=== PATIENT | female | born 1935 | race Caucasian/White ===

== ENCOUNTER 2017-10-06 14:05 | Inpatient (IN) | payer MEDICARE, MEDICAID ==
[~2017-10-06] VITALS: Ht 154.9 cm; Wt 56.7 kg
[~2017-10-06 14:05] MED LIST: ACET-2007 PO; ACET-2031 PO; AMOX-559 PO; ASPI-816 CHEW; ASPI81TA86 PO; ATOR20TA65 PO; AZIT-1 PO; BACDS PO; BENZ200C15 PO; CALC600T63 PO; CEF300 PO; CEPH-13 PO; CHOL10005 PO; CHOL378P6 PO; CIPDEXPT RIGHT EAR; CIPR-344 PO; CLO30T TOP; CLON1 GT; CLOP75TA PO; CLOP75TA43 PO; CLOT15CR63 TP; Calcium Carbonate/Vitamin D3 PO; DESO15CR TP; DIPH-1 PO; DOCU-202 PO; DOXY-179 PO; FLU150 PO; GLIP2.5T PO; GLIP5POW MC; HYDR-3074 PO; HYDR-3629 PO; HYDR-385 PO; HYDR12.558 PO; IBU800 PO; IBUP200C71 PO; LOR5/325 PO; LOSA100T67 PO; LOSA50TA68 PO; LOSA50TA73 PO; METO25TA93 PO; METXR500 PO; MIRT-22 PO; MIRT7.5T2 PO; NAPR-1043 PO; NEOM10DR44 RIGHT EAR; OMEP-137 PO; OMEP-153 PO; OXYC-856 PO; PHENA200 PO; PRAZ1CAP26 PO; PRED20TA6 PO; PRO25 PO; PROP10TA58 PO; PROP40TA45 PO; PSYL0.5234 PO; QUET100T PO; QUET25TA PO; QUET50TA21 PO; SER50 PO; SERT-179 PO; SERT-181 PO; TRAM-420 PO; TRAM100T22 PO; TRAZ-133 PO; Walker with seat; ZOLP-350 PO; ZOLP-358 PO; ZOLP-360 PO; [UNRECOGNIZED DRUG - CODE] PO; [UNRECOGNIZED DRUG - CODE] VG; [UNRECOGNIZED DRUG - SUPPLY]; ambien; glipizide; metoprolol; vicodin
--- NOTE | 2017-10-06 14:11 | ER Report ---
History and Physical Time Seen By : 14:10 HPI/ROS CHIEF COMPLAINT: Vomiting HISTORY OF PRESENT ILLNESS: This is an 82-year-old female who presents to the emergency department with her daughter for nausea and vomiting. The last week she's had an increase in nausea and vomiting and now she is producing green vomit. She did have an appointment today with her primary care provider but was sent to the emergency department for further evaluation. The daughter states she is concerned that her mother has influenza as well. She states she's had aches and chills for the last 2 days she's felt febrile but has not taken her temperature. Patient does have chronic diarrhea with no recent changes, she also has had decreased urinary output over the last several days. Patient denies shortness of breath, chest pain, headaches. REVIEW OF SYSTEMS: Constitutional: As above. Eyes: No discharge. ENT: No sore throat. Cardiovascular: No chest pain, no palpitations. Respiratory: No cough, no shortness of breath. Gastrointestinal: As above. Genitourinary: As above. Musculoskeletal: No back pain. Skin: No rashes. Neurological: No headache. Allergies: Coded Allergies: azithromycin (Verified Allergy, Intermediate, 10/06/17) per patient's daughter JUD Inhibitors (Unverified Allergy, Unknown, 10/06/17) Cough Home Meds Active Scripts Tramadol Hcl (TRAMADOL HCL) 50 Mg Tablet, 1 TAB PO TID Y for PAIN, #90 TAB 2 Refills Prov:JORI MARCUS APRN-C 10/01/17 Benzonatate (BENZONATATE) 200 Mg Capsule, 1 CAP PO TID Y for COUGH, #15 CAPSULE 0 Refills Prov:JORI MARCUS APRN-C 08/17/17 Prazosin Hcl (PRAZOSIN HCL) 1 Mg Capsule, 1 MG PO QHS, #90 CAPSULE 1 Refill Prov:JORI MARCUS APRN-C 08/17/17 Propranolol Hcl (PROPRANOLOL HCL) 40 Mg Tablet, 1 TAB PO BID, #60 TAB 5 Refills For blood pressure and to prevent headaches Prov:JORI MARCUS APRN-C 07/03/17 Clopidogrel Bisulfate (CLOPIDOGREL) 75 Mg Tablet, 1 TAB PO QDAY, #30 TAB 5 Refills To prevent blood clots and stroke Prov:JORI MARCUS APRN FLY WORKER-C 07/03/17 Sertraline Hcl (SERTRALINE HCL) 100 Mg Tablet, 1 TAB PO QAM, #90 TAB 1 Refill For depression Prov:JORI MARCUS APRNP-C 07/03/17 Losartan Potassium (LOSARTAN POTASSIUM) 100 Mg Tablet, 1 TAB PO DAILY, #90 TAB 1 Refill For blood pressure Prov:JORI MARCUS APRNP-C 07/03/17 Psyllium Husk (PSYLLIUM FIBER) 0.52 Gm Capsule, 2 CAP PO DAILY, #60 CAPSULE 5 Refills Prov:JORI MARCUS APRNP-C 01/16/17 Aspirin (Children's Aspirin) 81 Mg Tab.chew, 81 MG CHEW QDAY, #30 TAB.CHEW Prov:ALBINO BLUE MD 08/22/15 Discontinued Scripts Amoxicillin/Pot Clav 875-125 Mg Tab (AUGMENTIN 875-125 TABLET) 1 Each Tablet, 1 TAB PO Q12H, #20 TAB 0 Refills Prov:JORI MARCUS APRNP- 08/17/17 Past Medical/Surgical History H and has a past medical and surgical history of hypertension, left shoulder arthritis, wears glasses, type II diabetes, depression, place cystectomy, tonsillectomy, right total hip. Reviewed Nurses Notes: Yes Hx Smoking: No Smoking Status: Never Smoker Exposure to Second Hand Smoke?: No Hx Substance Use Disorder: No Hx Alcohol Use: No Constitutional Vital Sign - Last 24 Hours 10/06/17 10/06/17 10/06/17 10/06/17 14:09 14:09 14:30 14:54 Temp 97.6 Pulse 60 45 Resp 18 B/P (MAP) 143/64 149/66 (93) Pulse Ox 93 91 O2 Delivery Room Air O2 Flow Rate 2.0 10/06/17 10/06/17 10/06/17 15:00 15:30 16:00 Pulse 50 55 B/P (MAP) 109/44 (65) 106/47 (66) 124/48 (73) Pulse Ox 84 74 Intake and Output 10/06/17 10/06/17 10/07/17 15:00 23:00 07:00 Output Total 25 ml Balance -25 ml Physical Exam General Appearance: The patient is alert, has no immediate need for airway protection and no signs of toxicity. Eyes: Pupils equal and round no pallor or injection. ENT, Mouth: Mucous membranes are moist. Erythema to the posterior oropharynx, no exudates or edema. Respiratory: There are no retractions, lungs are clear to auscultation. Cardiovascular: Regular rate and rhythm, distant, no murmurs, clicks or rubs. Gastrointestinal: Abdomen is soft and non tender, no masses, bowel sounds normal. Neurological: Alert and oriented 4. Following all commands. Moving all extremities. No focal neuro deficits. Very hard of hearing. Skin: Warm and dry, no rashes. Musculoskeletal: Neck is supple non tender. Extremities are nontender, nonswollen and have full range of motion. DIFFERENTIAL DIAGNOSIS: After history and physical exam differential diagnosis was considered nausea and vomiting including but not limited to gastroenteritis , gastritis, appendicitis, and medication side effect, chronic diarrhea, UTI, influenza, viral syndrome. Medical Decision Making Data Points Result Diagram: 10/06/17 1426 10/06/17 1426 Laboratory Hematology Test 10/06/17 14:26 10/06/17 14:35 10/06/17 16:01 Red Blood Count 4.74 M/uL (4.17-5.56) Mean Corpuscular Volume 89.1 fL (80.0-96.0) Mean Corpuscular Hemoglobin 29.2 pg (26.0-33.0) Mean Corpuscular Hemoglobin Concent 32.8 g/dL (32.0-36.0) Red Cell Distribution Width 14.3 % (11.5-14.5) Mean Platelet Volume 8.8 fL (7.2-11.1) Neutrophils (%) (Auto) 63.2 % (39.4-72.5) Lymphocytes (%) (Auto) 25.4 % (17.6-49.6) Monocytes (%) (Auto) 8.0 % (4.1-12.4) Eosinophils (%) (Auto) 2.5 % (0.4-6.7) Basophils (%) (Auto) 0.9 % (0.3-1.4) Nucleated RBC Relative Count (auto) 0.1 /100WBC Neutrophils # (Auto) 5.8 K/uL (2.0-7.4) Lymphocytes # (Auto) 2.3 K/uL (1.3-3.6) Monocytes # (Auto) 0.7 K/uL (0.3-1.0) Eosinophils # (Auto) 0.2 K/uL (0.0-0.5) Basophils # (Auto) 0.1 K/uL (0.0-0.1) Nucleated RBC Absolute Count (auto) 0.01 K/uL Sodium Level 137 mmol/L (137-145) Potassium Level 4.7 mmol/L (3.5-5.0) Chloride Level 105 mmol/L (98-107) Carbon Dioxide Level 13 mmol/L (22-31) Blood Urea Nitrogen 53 mg/dl (7-18) Creatinine 2.30 mg/dl (0.52-1.04) Glomerular Filtration Rate Calc 20.3 Random Glucose 80 mg/dl (75-110) Calcium Level 9.4 mg/dl (8.4-10.2) Total Bilirubin 0.7 mg/dl (0.2-1.3) Aspartate Amino Transf (AST/SGOT) 32 U/L (0-35) Alanine Aminotransferase (ALT/SGPT) 33 U/L (0-56) Alkaline Phosphatase 95 U/L (0-126) Total Protein 8.0 gm/dl (6.3-8.2) Albumin 4.6 g/dl (3.5-5.0) Influenza Virus Type A (PCR) Negative (NEGATIVE) Influenza Virus Type B (PCR) Negative (NEGATIVE) Urine Color Yellow Urine Clarity Clear Urine pH 5.0 pH (4.8-9.5) Urine Specific [place] 1.014 Urine Protein Negative mg/dL (NEGATIVE) Urine Glucose (UA) Negative mg/dL (NEGATIVE) Urine Ketones 20 mg/dL (NEGATIVE) Urine Blood Negative (NEGATIVE) Urine Nitrite Negative (NEGATIVE) Urine Bilirubin Negative (NEGATIVE) Urine Urobilinogen Negative mg/dL (0.2-1.9) Urine Leukocyte Esterase Negative (NEGATIVE) Urine RBC <1 /HPF (0-2/HPF) Urine WBC 1 /HPF (0-5/HPF) Urine Squamous Epithelial Cells Many /LPF (NONE-FEW) Urine Bacteria Negative /HPF (NONE-FEW) Urine Hyaline Casts Moderate /LPF (NONE-FEW) Urine Mucus None /HPF (NONE-FEW) Chemistry Test 1/30/18 14:26 10/06/17 14:35 10/06/17 16:01 White Blood Count 9.2 k/uL (4.5-11.0) Red Blood Count 4.74 M/uL (4.17-5.56) Hemoglobin 13.8 g/dL (12.0-16.0) Hematocrit 42.2 % (34.0-47.0) Mean Corpuscular Volume 89.1 fL (80.0-96.0) Mean Corpuscular Hemoglobin 29.2 pg (26.0-33.0) Mean Corpuscular Hemoglobin Concent 32.8 g/dL (32.0-36.0) Red Cell Distribution Width 14.3 % (11.5-14.5) Platelet Count 242 K/uL (150-450) Mean Platelet Volume 8.8 fL (7.2-11.1) Neutrophils (%) (Auto) 63.2 % (39.4-72.5) Lymphocytes (%) (Auto) 25.4 % (17.6-49.6) Monocytes (%) (Auto) 8.0 % (4.1-12.4) Eosinophils (%) (Auto) 2.5 % (0.4-6.7) Basophils (%) (Auto) 0.9 % (0.3-1.4) Nucleated RBC Relative Count (auto) 0.1 /100WBC Neutrophils # (Auto) 5.8 K/uL (2.0-7.4) Lymphocytes # (Auto) 2.3 K/uL (1.3-3.6) Monocytes # (Auto) 0.7 K/uL (0.3-1.0) Eosinophils # (Auto) 0.2 K/uL (0.0-0.5) Basophils # (Auto) 0.1 K/uL (0.0-0.1) Nucleated RBC Absolute Count (auto) 0.01 K/uL Glomerular Filtration Rate Calc 20.3 Calcium Level 9.4 mg/dl (8.4-10.2) Total Bilirubin 0.7 mg/dl (0.2-1.3) Aspartate Amino Transf (AST/SGOT) 32 U/L (0-35) Alanine Aminotransferase (ALT/SGPT) 33 U/L (0-56) Alkaline Phosphatase 95 U/L (0-126) Total Protein 8.0 gm/dl (6.3-8.2) Albumin 4.6 g/dl (3.5-5.0) Influenza Virus Type A (PCR) Negative (NEGATIVE) Influenza Virus Type B (PCR) Negative (NEGATIVE) Urine Color Yellow Urine Clarity Clear Urine pH 5.0 pH (4.8-9.5) Urine Specific [place] 1.014 Urine Protein Negative mg/dL (NEGATIVE) Urine Glucose (UA) Negative mg/dL (NEGATIVE) Urine Ketones 20 mg/dL (NEGATIVE) Urine Blood Negative (NEGATIVE) Urine Nitrite Negative (NEGATIVE) Urine Bilirubin Negative (NEGATIVE) Urine Urobilinogen Negative mg/dL (0.2-1.9) Urine Leukocyte Esterase Negative (NEGATIVE) Urine RBC <1 /HPF (0-2/HPF) Urine WBC 1 /HPF (0-5/HPF) Urine Squamous Epithelial Cells Many /LPF (NONE-FEW) Urine Bacteria Negative /HPF (NONE-FEW) Urine Hyaline Casts Moderate /LPF (NONE-FEW) Urine Mucus None /HPF (NONE-FEW) Urinalysis Test 10/06/17 16:01 Urine Color Yellow Urine Clarity Clear Urine pH 5.0 pH (4.8-9.5) Urine Specific [place] 1.014 Urine Protein Negative mg/dL (NEGATIVE) Urine Glucose (UA) Negative mg/dL (NEGATIVE) Urine Ketones 20 mg/dL (NEGATIVE) Urine Blood Negative (NEGATIVE) Urine Nitrite Negative (NEGATIVE) Urine Bilirubin Negative (NEGATIVE) Urine Urobilinogen Negative mg/dL (0.2-1.9) Urine Leukocyte Esterase Negative (NEGATIVE) Urine RBC <1 /HPF (0-2/HPF) Urine WBC 1 /HPF (0-5/HPF) Urine Squamous Epithelial Cells Many /LPF (NONE-FEW) Urine Bacteria Negative /HPF (NONE-FEW) Urine Hyaline Casts Moderate /LPF (NONE-FEW) Urine Mucus None /HPF (NONE-FEW) ED Course/Re-evaluation Clinical Indication for ER IV: Hydration, IV Access ED Course The patient was admitted. A history of physical were obtained. Differential diagnoses were considered. An IV was started. A CBC, CMP were obtained. A 1 L normal saline bolus was given. 4 mg IV Zofran was given. CBC unremarkable. Chemistries showing CO2 13, BUN 53, creatinine 2.30 area did UA showing large ketones. Negative influenza. Stool studies ordered but not obtained in the emergency department. I did review these results with the patient and her daughter and thought that it would be advisable for her to stay in the hospital for her renal impairment. The daughter and the patient after much discussion agreed to stay in the hospital. I did review the case with Dr. Fulton as noted below and he accepted the patient into the hospitalist services and she will be admitted to the medical surgical floor. I did tell the patient that she will be admitted patient had no other questions or concerns at the time of admission. 10/06/2017 3:47:57 pm I did speak with Dr. Fulton regarding the patient's case and he is agreed to make the patient to the medical surgical unit for dehydration and elevated BUN and creatinine. Decision to Disposition Date: Oct 06, 2017 Decision to Disposition Time: 15:47 Depart Departure Latest Vital Signs Vital Signs Date Time Temp Pulse Resp B/P (MAP) Pulse Ox O2 Delivery O2 Flow Rate FiO2 10/06/17 16:00 55 124/48 (73) 74 10/06/17 14:09 97.6 18 Room Air 10/06/17 14:09 2.0 Impression: Primary Impression: Dehydration Additional Impressions: Elevated serum creatinine Elevated BUN Condition: Improved Disposition: Admitted from ER Referrals: JORI MARCUS APRN FLY WORKER-C (PCP) Problem Qualifiers SHERLY BURNS FLY WORKER-BC Oct 06, 2017 14:11
[2017-10-06] MEDS ORDERED: LR(*) 1000 ML BAG 1,000 ML IV ONE (14:23)
[2017-10-06] MEDS ORDERED: ONDANSETRON 4 MG/2 ML VIAL IVP ONE (14:25)
[2017-10-06 14:41] LABS: PLATELET COUNT, AUTOMATED 242 K/uL (150-450)
[2017-10-06] MEDS ORDERED: NS(*) 0.9% 1000 ML BAG 1,000 ML IV ONE (15:05)
[2017-10-06 16:55] VITALS: BP 97/32
[2017-10-06 18:37] VITALS: BP 129/90
[2017-10-06] MEDS ORDERED: ACETAMINOPHEN 325 MG TAB PO PRN (18:45)
[2017-10-06] MEDS ORDERED: ONDANSETRON 4 MG/2 ML VIAL IVP PRN (18:45)
[2017-10-06] MEDS: NS(*) 0.9% 1000 ML BAG 1,000 ML IV PRN ×2 (19:10→23:19)
--- NOTE | 2017-10-06 19:16 | History & Physical ---
History of Present Illness Chief Complaint N/V/Diarrhea/ weight loss>20lbs History of Present Illness Mrs. Wang is an 82-year-old female with PMH of HTN, Depression who presented to the emergency department with her daughter for nausea, vomiting and diarrhea. Since the last week she's been having an increase in nausea and vomiting and now she is producing green vomit. She did have an appointment today with her primary care provider but was sent to the emergency department for further evaluation. The daughter was concerned that her mother could have influenza as well. She mentioned that she also has been having body ache, fever and chills for the last 2 days. The patient also has been having chronic diarrhea with decreased urinary output over the last several days. Patient denies shortness of breath, chest pain, headaches. She also has lost >20lbs. I discussed the case with the ER-MD and admitted the patient for further evaluation and management. She is chronica;;y looked sick and clinically looked dehydrated. Her BUN/Cr 53/ 2.3 with GFR 20ml/min also high and HCO3 were 13 with Anion Gap of 19. History Home Meds Active Scripts Tramadol Hcl (TRAMADOL HCL) 50 Mg Tablet, 1 TAB PO TID Y for PAIN, #90 TAB 2 Refills Prov:JORI MARCUS APRNP-C 10/01/17 Benzonatate (BENZONATATE) 200 Mg Capsule, 1 CAP PO TID Y for COUGH, #15 CAPSULE 0 Refills Prov:JORI MARCUS APRNP-C 08/17/17 Prazosin Hcl (PRAZOSIN HCL) 1 Mg Capsule, 1 MG PO QHS, #90 CAPSULE 1 Refill Prov:JORI MARCUS APRNP-C 08/17/17 Propranolol Hcl (PROPRANOLOL HCL) 40 Mg Tablet, 1 TAB PO BID, #60 TAB 5 Refills For blood pressure and to prevent headaches Prov:JORI MARCUS APRNP-C 07/03/17 Clopidogrel Bisulfate (CLOPIDOGREL) 75 Mg Tablet, 1 TAB PO QDAY, #30 TAB 5 Refills To prevent blood clots and stroke Prov:JORI MARCUS APRNP-C 07/03/17 Sertraline Hcl (SERTRALINE HCL) 100 Mg Tablet, 1 TAB PO QAM, #90 TAB 1 Refill For depression Prov:JORI MARCUS DAWOOD CERNA-C 07/03/17 Losartan Potassium (LOSARTAN POTASSIUM) 100 Mg Tablet, 1 TAB PO DAILY, #90 TAB 1 Refill For blood pressure Prov:TRACEYDANNIJAJORIKENIA CERNA-C 07/03/17 Psyllium Husk (PSYLLIUM FIBER) 0.52 Gm Capsule, 2 CAP PO DAILY, #60 CAPSULE 5 Refills Prov:KRISTINEJoeJORI RAZO APRN-C 01/16/17 Aspirin (Children's Aspirin) 81 Mg Tab.chew, 81 MG CHEW QDAY, #30 TAB.CHEW Prov:ALBINO BLUE MD 08/22/15 Discontinued Scripts Amoxicillin/Pot Clav 875-125 Mg Tab (AUGMENTIN 875-125 TABLET) 1 Each Tablet, 1 TAB PO Q12H, #20 TAB 0 Refills Prov:JORI MARCUS APRN-[place] 08/17/17 Allergies: Coded Allergies: azithromycin (Verified Allergy, Intermediate, 10/06/17) per patient's daughter JUD Inhibitors (Unverified Allergy, Unknown, 10/06/17) Cough Patient History: Alcoholism in family BROTHER OR SISTER (4 Brothers) FH: diabetes mellitus FATHER, , Age:62 BROTHER OR SISTER (3 sisters) FH: lung disease BROTHER OR SISTER (3 sisters) TIAs BROTHER OR SISTER (4 Brothers) Hx Smoking: No Smoking Status: Never Smoker Exposure to Second Hand Smoke?: No Caffeine Intake: Coffee, Tea Caffeine/Cups Per Day: 3 Hx Alcohol Use: No When Quit Alcohol?: HASN'T HAD ANY ALCOHOL IN 15 YEARS Hx Substance Use Disorder: No Social Drug Use: Never Review of Systems Constitutional: Weight Loss, No Weight Gain, No Chills Neurological: Weakness, No Confusion, No Dizziness Eyes: No Vision Change ENT: No Sinus Congestion, No Sore Throat Cardiovascular: No Chest Pain, No Palpitations Respiratory: No Shortness of Breath, No Cough Gastrointestinal: Nausea, No Vomiting, Diarrhea, No Dysphagia, No Constipation , No Abdominal Pain Genitourinary: No Dysuria, No Hematuria Musculoskeletal: No Pain, No Sprain, No Strain Psychiatric: No Depression, No Anxiety Exam Vital Signs Vital Signs Date Time Temp Pulse Resp B/P (MAP) Pulse Ox O2 Delivery O2 Flow Rate FiO2 10/06/17 18:37 97.5 51 12 129/90 (103) 97 Nasal Cannula 2.0 General Appearance: Alert, Awake, No Acute Distress, Afebrile Neuro: No Gross deficits Eyes: PERRLA ENT: Other (dry oral mucosa) Cardiovascular: Normal Rhythm & Peripheral Pulses Respiratory: No Respiratory Distress GI: Abd Soft and Non-Tender Extremities: Soft and Non Tender Integumentary: Scaly / Dry Skin Psych: Alert & Oriented X3, Other (down) Medical Decision Making Data Points Result Diagram: 10/06/17 1426 10/06/17 1426 Pre-Admit Course Medical Record Review: Yes Assessment and Plan Problems: (1) Acute kidney injury (nontraumatic) Status: Acute Assessment & Plan: She has been having N/V/D and lost > 20 lbs weight and became severe dehydrated and her kidney function deteriorated to GFR 20ml/min I will start her on IVF NS 250ml/h I will repeat BMP and CBC in am I will get Renal US in am I will get Urine Protein, creatinine and Na (2) Metabolic acidosis Status: Acute Assessment & Plan: She has high AG metabolic acidosis due to starvation ketosis and uremia. I will start IVF NS 250ml/min I will repeat BMP in am (3) Dehydration Status: Acute Assessment & Plan: I will start IVF NS at 250ml/h for 2L and then change to 150ml/h Central Venous Access Medical Necessity for Access: Hemodynamic Monitoring, IV Access, Medication Administration Time Spent on Plan of Care: < 30 min Copies to: JORI MARCUS APRN HEEL COVERER MACHINE OPERATOR-C Venous Thromboembolism VTE Risk Physician Assess for VTE Risk: Yes Patient's VTE Risk: Low VTE Diagnostic Test 2 Days Prior to Admit: No Antithrombotics Is Pt On Any Antithrombotics?: No Exam Sepsis Risk: No Definite Risk ELROY TANNER MD Oct 06, 2017 19:16
[2017-10-06] MEDS: traMADol 50 MG TAB PO PRN (21:44)
[2017-10-06 23:04] VITALS: BP 105/68
[2017-10-07] MEDS: NS(*) 0.9% 1000 ML BAG 1,000 ML IV PRN ×2 (03:10→10:54)
[2017-10-07 03:26] VITALS: BP 108/35
[2017-10-07 05:51] LABS: PLATELET COUNT, AUTOMATED 174 K/uL (150-450)
[2017-10-07 07:23] VITALS: BP 94/38
[2017-10-07] MEDS: SERTRALINE HCL 50 MG TAB PO SCH (08:22)
[2017-10-07] MEDS: PANTOPRAZOLE SOD 40 MG TABEC PO SCH (08:22)
[2017-10-07] MEDS: CLOPIDOGREL BISULFATE 75MG TAB PO SCH (08:22)
[2017-10-07 08:35] VITALS: Ht 154.9 cm; Wt 56.7 kg
[2017-10-07 10:52] VITALS: BP 137/55
[2017-10-07 14:08] VITALS: BP 132/52
--- NOTE | 2017-10-07 14:12 | Hospitalist Progress Note ---
Subjective Progress Notes Subjective She reports feeling improved and would like to eat. Physical Exam Vital Signs Date Time Temp Pulse Resp B/P (MAP) Pulse Ox O2 Delivery O2 Flow Rate FiO2 10/07/17 10:52 97.7 54 14 137/55 (82) 92 Nasal Cannula 1.0 Intake and Output 10/08/17 07:01 Intake Total 670 ml Balance 670 ml Intake Oral 0 ml IV Total 670 ml # Voids 2 General Appearance: Alert, Awake, Other (hard of hearing) Cardiovascular: Regular Rate and Rhythm Respiratory: Clear to Auscultation GI: Soft and Non-Tender Extremities: Warm, Perfused Result Diagram: 10/07/17 0540 10/07/17 0521 Assessment and Plan Problems: (1) Acute kidney injury (nontraumatic) Status: Acute Assessment & Plan: Appears to be due to dehydration secondary to poor intake. She has improved with IV fluids. Creatinine is 1.7 today (2.3 at admission). Will continue IV fluids. Will resume oral intake. Watch closely. (2) Metabolic acidosis Status: Acute Assessment & Plan: She had a high AG metabolic acidosis most likely due to starvation ketosis. Continue IV fluids. Resume oral intake. Watch labs. (3) Dehydration Status: Acute Assessment & Plan: Will continue IV fluids, but will decrease to 80ml/hr. Watch oral intake. Central Venous Access Medical Necessity for Access: Hemodynamic Monitoring, IV Access, Medication Administration Exam Sepsis Risk: No Definite Risk RUSS BLUE MD Oct 07, 2017 14:12
[2017-10-07 18:40] VITALS: BP 136/63
[2017-10-07 23:20] VITALS: BP 123/48
[2017-10-08] VITALS (7 sets, daily range): BP systolic 104–174; BP diastolic 40–78
[2017-10-08] MEDS: traMADol 50 MG TAB PO PRN ×2 (00:03→17:04)
[2017-10-08 06:02] LABS: PLATELET COUNT, AUTOMATED 158 K/uL (150-450)
[2017-10-08] MEDS: CLOPIDOGREL BISULFATE 75MG TAB PO SCH (08:19)
[2017-10-08] MEDS: PANTOPRAZOLE SOD 40 MG TABEC PO SCH (08:20)
[2017-10-08] MEDS: SERTRALINE HCL 50 MG TAB PO SCH (08:20)
[2017-10-08] MEDS: NS(*) 0.9% 1000 ML BAG 1,000 ML IV PRN (09:41)
[2017-10-08] MEDS ORDERED: NS(*) 0.9% 1000 ML BAG 1,000 ML IV PRN (09:56)
--- NOTE | 2017-10-08 13:26 | Hospitalist Progress Note ---
Subjective Progress Notes Subjective Mrs. Wang is an 82-year-old female with PMH of HTN, Depression who presented to the emergency department with her daughter for nausea, vomiting and diarrhea. Since the last week she's been having an increase in nausea and vomiting and now she is producing green vomit. She did have an appointment today with her primary care provider but was sent to the emergency department for further evaluation. The daughter was concerned that her mother could have influenza as well. She mentioned that she also has been having body ache, fever and chills for the last 2 days. The patient also has been having chronic diarrhea with decreased urinary output over the last several days. Patient denies shortness of breath, chest pain, headaches. She also has lost >20lbs. I discussed the case with the ER-MD and admitted the patient for further evaluation and management. She is chronica;;y looked sick and clinically looked dehydrated. Her BUN/Cr 53/ 2.3 with GFR 20ml/min also high and HCO3 were 13 with Anion Gap of 19. 2/1: She is feeling much better but she is slightly confused. Her kidney function has sig. improved with cr 1.3 from 2.3. She is afebrile, hemodynamically and medically stable. Patient Complains of: Neurological: Confusion, No: Weakness, Dizziness Cardiovascular: No: Chest Pain, Palpitations Respiratory: No: Cough, Congestion, Shortness of Breath Gastrointestinal: No Nausea, No Vomiting Genitourinary: No Dysuria, No Hematuria Musculoskeletal: No: Pain, Sprain, Strain, Impaired Mobility Physical Exam Vital Signs Date Time Temp Pulse Resp B/P (MAP) Pulse Ox O2 Delivery O2 Flow Rate FiO2 10/08/17 12:00 93 10/08/17 11:09 98.6 56 12 173/65 (101) Room Air 10/08/17 02:45 1.0 Intake and Output 10/09/17 07:00 Intake Total 118 ml Output Total 100 ml Balance 18 ml Intake Oral 0 ml IV Total 118 ml Output Urine Total 100 ml # Voids 2 General Appearance: Alert, Awake, No Acute Distress, Afebrile Neuro: No Gross deficits Eyes: PERRLA ENT: Normal Cardiovascular: Normal Rhythm & Peripheral Pulses Respiratory: No Respiratory Distress GI: Soft and Non-Tender Extremities: Soft and Non Tender Integumentary: Skin Intact without Lesion / Mass Psych: Appropriate Mood & Affect (not fully oriented and hard of hearing) Result Diagram: 10/08/17 0534 10/08/17 0534 Assessment and Plan Problems: (1) Acute kidney injury (nontraumatic) Status: Acute Assessment & Plan: Appears to be due to dehydration secondary to poor intake. She has improved with IV fluids. Creatinine is 1.7 today (2.3 at admission). Will continue IV fluids. Will resume oral intake. Watch closely. 10/08: I will change her IVF to NS at 50ml/h and repeat BMP in am. Anticipated d/c in am (2) Metabolic acidosis Status: Acute Assessment & Plan: She had a high AG metabolic acidosis most likely due to starvation ketosis. Continue IV fluids. Resume oral intake. Watch labs. (3) Dehydration Status: Acute Assessment & Plan: Will continue IV fluids, but will decrease to 80ml/hr. Watch oral intake. 10/08: She is getting better with IVF. Central Venous Access Medical Necessity for Access: Hemodynamic Monitoring, IV Access, Medication Administration Exam Sepsis Risk: No Definite Risk ELROY TANNER MD Oct 08, 2017 13:26
[2017-10-08] MEDS ORDERED: LOSARTAN POTASSIUM 50 MG TAB PO SCH (15:45)
[2017-10-08] MEDS: ATENOLOL 25 MG TAB PO SCH (16:07)
[2017-10-09 03:36] VITALS: BP 178/74
[2017-10-09 08:09] VITALS: BP 176/70
[2017-10-09] MEDS: CLOPIDOGREL BISULFATE 75MG TAB PO SCH (08:16)
[2017-10-09] MEDS: PANTOPRAZOLE SOD 40 MG TABEC PO SCH (08:16)
[2017-10-09] MEDS: SERTRALINE HCL 50 MG TAB PO SCH (08:16)
[2017-10-09] MEDS: ATENOLOL 25 MG TAB PO SCH (08:17)
[2017-10-09] MEDS ORDERED: LOSARTAN POTASSIUM 50 MG TAB PO SCH (09:00)
[2017-10-09] MEDS ORDERED: ATEN-65 PO (09:32)
--- NOTE | 2017-10-09 11:08 | Medical Nutrition Therapy ---
Nutrition Anthropometrics Height (Inches): 61.00 Height (Calculated Centimeters: 154.484087 Weight (Pounds): 125 Weight (Calculated Kilograms): 56.784 BMI Calculated: 23.62 Gideon Nutrition Score: Adequate Gideon Nutrition Risk Score: 20 Dietary Referral Nutrition Risk Factors: Unplanned Loss >10lbs Nutrition Risk Comment: Physical Findings Physical Appearance: WNL 23.7 Skin Appearance Skin Appearance: Edema Edema Location Modifier: Edema Location: Type of Edema: Degree of Edema: Gastrointestinal Symptoms GI Symtoms: Diarrhea, Change in Bowel Pattern Tube Present: Bowel Sounds: Recent Bowel Pattern: Stool Characteristics: Nutritional Diagnosis Nutritional Risk Acuity 1: Acute/ES Renal Nutritional Risk Acuity 2: V/D > 3 Days Nutritional Risk Acuity 3: Nausea Past Medical History: chronic diarrhea, HTN, T2DM, depression Nutritional Acuity: 1-High Nutrition Diagnosis: Involuntary Wt. Loss Nutrition Etiology: Inadeq. Food/Chris Intake Nutrition Problem/Etiology/Sym: Involuntary wt. loss r/t inadequate food/chris intake, N, V, and chronic diarrhea AEB reported 20 lb. wt loss Energy Requirement: 1300 ([place] [facility] Jeor) Protein Requirement: 57 (1 g/kg) Fluid Requirement: 1680 (30 ml/kg) Diet Type: Diet as Tolerated LAMIN/REG Nutrition Intervention: Cont diet as ordered, Encourage intake Diet Comment To RSA: PLEASE OFFER SUGAR FREE NUTRITION SUPPLEMENT IF INTAKE < 50% Nutrition Monitoring & Eval RD Patient Assessment Time: [address] Assessment Type: RD Assessment Patient Nutrition Acuity: 1-High Follow Up Date: Oct 10, 2017 Nutritional Comment: 10/07 Pt admitted for acute kidney injury (non-traumatic) due to N/V/D and 20 lb. wt loss. Pt also dehydrated and has metabolic acidosis due to starvation ketosis and uremia. Pt reports N/V x 1 week. Pt has chronic diarrhea with no recent changes. Also reports 20 lb. wt loss. Pt current wt 125#. Wt from previous visit on 10/14/15 was 160# stated. Will discuss with pt and family regarding time frame of wt loss. Pt on LAMIN with no intake documentation available. Notable labs include low Hgb, Na 136, BUN 40, Cr 1.7, Glu 73, and Ca 8.2. Will monitor intake and offer nutr supplement if necessary. Continue to monitor labs, N/V, etc. 2/1 Spoke to patient in room. Unable to understand pt at times and pt had some confusion. Family was not present to answer questions. Pt could not explain time frame of wt loss. Will provide sugar free nutrition supplement if intake is < 50%. Pt on LAMIN averaging 70% intake of reg to large portions. GI symptoms resolved and WNL per nursing doc. Pt utilitizes [employer] meals and home health care according to social services manager note. Notable labs include BUN 26, Cr 1.3, total pro 5.5, and alb 2.8. Will continue to encourage intake and monitor. 2/2 Pt continues on LAMIN averaging intakes 73% of reg portions. Notable labs include Na 136, BUN 20, and Cr 1.2. No N/V/D recorded by nursing staff. Pt is feeling better but slightly confused per MD note. May discharge today or tomorrow. Will continue to offer sugar free supplement if intake < 50% and continue to monitor. DALILA PIZARRO Oct 08, 2017 09:53
--- NOTE | 2017-10-09 11:17 | Hospitalist Depart ---
Discharge Summary Reason for Hosp/Final Diag: (1) Acute kidney injury (nontraumatic) Status: Acute Hospital Course & Plan: Mrs. Wang is an 82-year-old female with PMH of HTN, Depression who presented to the emergency department with her daughter for nausea, vomiting and diarrhea. Since the last week she's been having an increase in nausea and vomiting and now she is producing green vomit. She did have an appointment today with her primary care provider but was sent to the emergency department for further evaluation. The daughter was concerned that her mother could have influenza as well. She mentioned that she also has been having body ache, fever and chills for the last 2 days. The patient also has been having chronic diarrhea with decreased urinary output over the last several days. Patient denies shortness of breath, chest pain, headaches. She also has lost >20lbs. I discussed the case with the ER-MD and admitted the patient for further evaluation and management. She is chronically looked sick and clinically looked dehydrated. Her BUN/Cr 53/ 2.3 with GFR 20ml/min also high and HCO3 were 13 with Anion Gap of 19. 10/08: She is feeling much better but she is slightly confused. Her kidney function has sig. improved with cr 1.3 from 2.3. She is afebrile, hemodynamically and medically stable. I will change her IVF to NS at 50ml/h and repeat BMP in am. Anticipated d/c in am 10/09: She is feeling better and without complaint. Her Cr is 1.2 and GFR 43ml/min. She is afebrile , hemodynamically and medically stable. I will stop her IVF and resume her home medications. She will f/u with her PCP (2) Metabolic acidosis Status: Resolved Hospital Course & Plan: She had a high AG metabolic acidosis most likely due to starvation ketosis. Continue IV fluids. Resume oral intake. Watch labs. 10/09: Her metabolic acidosis with AG has resolved (3) Dehydration Status: Resolved Hospital Course & Plan: Will continue IV fluids, but will decrease to 80ml/hr. Watch oral intake. 10/08: She is getting better with IVF. 2: Her dehydration has improved Departure Weight (Pounds): 125 Weight (Ounces): 3.0 Result Diagram: 10/08/17 0534 10/09/17 05 Condition: Improved Discharge: Home Health PT/OT Follow Up For: PT For Strengthening Home Health [employer] Follow Up For: ADL Assistance Time Spent: < 30 min Discharge Instructions Home Meds Active Scripts Atenolol (ATENOLOL) 25 Mg Tablet, 1 TAB PO QDAY for 30 Days, #30 TAB Prov:ELROY TANNER MD 10/09/17 Tramadol Hcl (TRAMADOL HCL) 50 Mg Tablet, 1 TAB PO TID Y for PAIN, #90 TAB 2 Refills Prov:JORI MARCUS APRN 10/01/17 Benzonatate (BENZONATATE) 200 Mg Capsule, 1 CAP PO TID Y for COUGH, #15 CAPSULE 0 Refills Prov:JORI MARCUS APRN 08/17/17 Prazosin Hcl (PRAZOSIN HCL) 1 Mg Capsule, 1 MG PO QHS, #90 CAPSULE 1 Refill Prov:JORI MARCUS APRN 08/17/17 Clopidogrel Bisulfate (CLOPIDOGREL) 75 Mg Tablet, 1 TAB PO QDAY, #30 TAB 5 Refills To prevent blood clots and stroke Prov:JORI MARCUS APRN 07/03/17 Sertraline Hcl (SERTRALINE HCL) 100 Mg Tablet, 1 TAB PO QAM, #90 TAB 1 Refill For depression Prov:JORI MARCUS APRN 07/03/17 Losartan Potassium (LOSARTAN POTASSIUM) 100 Mg Tablet, 1 TAB PO DAILY, #90 TAB 1 Refill For blood pressure Prov:JORI MARCUS APRN- 07/03/17 Psyllium Husk (PSYLLIUM FIBER) 0.52 Gm Capsule, 2 CAP PO DAILY, #60 CAPSULE 5 Refills Prov:JORI MARCUS APRN-C 01/16/17 Aspirin (Children's Aspirin) 81 Mg Tab.chew, 81 MG CHEW QDAY, #30 TAB.CHEW Prov:ALBINO BLUE MD 08/22/15 Discontinued Scripts Propranolol Hcl (PROPRANOLOL HCL) 40 Mg Tablet, 1 TAB PO BID, #60 TAB 5 Refills For blood pressure and to prevent headaches Prov:JORI MARCUS APRNP-C 07/03/17 Amoxicillin/Pot Clav 875-125 Mg Tab (AUGMENTIN 875-125 TABLET) 1 Each Tablet, 1 TAB PO Q12H, #20 TAB 0 Refills Prov:JORI MARCUS APRN 08/17/17 Diet: No Added Salt (DANIKA) Activity: As Tolerated Copies to: JORI MARCUS APRN Venous Thromboembolism Antithrombotics Is Pt On Any Antithrombotics?: No [id number] Certification Face to Face Home Health Certification Continue rehabilitation including Home health PT to strengthen to her baseline status. Medical Necessity: Rehab Date Face to Face Conducted: Oct 09, 2017 ELROY TANNER MD Oct 09, 2017 11:17
== END 2017-10-09 12:25 | disposition home health service (06) | DRG 683 ==
LOC: ER 14:14 → MED 16:21
PROVIDERS: ADMIT Specialist; ATTEND Specialist
DX: N17.9 Acute kidney failure, unspecified (principal); E87.2 Acidosis; E86.0 Dehydration; I10 Essential (primary) hypertension; E11.9 Type 2 diabetes mellitus without complications; F32.9 Major depressive disorder, single episode, unspecified; M19.012 Primary osteoarthritis, left shoulder; R19.7 Diarrhea, unspecified; R63.4 Abnormal weight loss; Z88.1 Allergy status to other antibiotic agents; Z88.8 Allergy status to other drugs, medicaments and biological substances; Z97.3 Presence of spectacles and contact lenses; Z96.652 Presence of left artificial knee joint; R11.2 Nausea with vomiting, unspecified; K52.9 Noninfective gastroenteritis and colitis, unspecified
CPT/HCPCS: 36415; 81001; 82040; 82247; 82310; 82374; 82435; 82565; 82947; 84075; 84132; 84155; 84295; 84450; 84460; 84520; 85025; 87502; 96361; 96374; 97161; 99285; A4353; J2405; J7030

== ENCOUNTER → 2017-10-29 | Outpatient (CLI) | payer MEDICARE, MEDICAID ==
[2017-10-07 08:35] VITALS: BMI 23.6
[~2017-10-29] MED LIST changes: +ATEN-65 PO
[2017-10-29 16:36] LABS: PLATELET COUNT, AUTOMATED 251 K/uL (150-450)
== END ==
LOC: LAB 15:58
PROVIDERS: ATTEND Nurse Practitioner Family
DX: R19.7 Diarrhea, unspecified (principal); N17.9 Acute kidney failure, unspecified; I10 Essential (primary) hypertension
CPT/HCPCS: 36415; 82040; 82247; 82310; 82374; 82435; 82565; 82947; 84075; 84132; 84155; 84295; 84450; 84460; 84520; 85025

== ENCOUNTER 2017-11-21 10:02 | Emergency (ER) | payer MEDICARE, MEDICAID ==
[2017-10-07 08:35] VITALS: Wt 56.8 kg
--- NOTE | 2017-11-21 10:07 | ER Report ---
History and Physical Time Seen By MD: 10:06 BIRD/AMRITA CHIEF COMPLAINT: Falling HISTORY OF PRESENT ILLNESS: Patient is an 82-year-old female who presents to the emergency department for frequent falls over the past 2 days. Patient is had 4 separate falls to yesterday and into today. These falls associated with the sudden onset of lightheadedness, followed by syncope. Patient denies any chest pain in the prior 2 days she denies chest pain during the episodes of lightheadedness she denies currently any chest pain. Patient has had some vomiting and diarrhea over the last 2 days. Patient did have an admission to the hospital at the beginning of October of this year for similar type of symptoms. Patient denies any shortness of breath. Patient denies any abdominal pain. She denies dysuria. She does complain of pain to her 3rd finger of her left hand. Patient does normally ambulate with a 4point walker. REVIEW OF SYSTEMS: Constitutional: No fever, no chills. Eyes: No discharge. ENT: No sore throat. Cardiovascular: No chest pain, no palpitations. Respiratory: No cough, no shortness of breath. Gastrointestinal: No abdominal pain, no vomiting. Genitourinary: No hematuria. Musculoskeletal: No back pain. Left 3rd finger pain Neurological: No headache. Syncopal episodes and fall Allergies: Coded Allergies: azithromycin (Verified Allergy, Intermediate, 10/06/17) per patient's daughter JUD Inhibitors (Unverified Allergy, Unknown, 10/06/17) Cough Home Meds Active Scripts Amlodipine Besylate (AMLODIPINE BESYLATE) 5 Mg Tablet, 1 TAB PO DAILY, #30 TAB 0 Refills Prov:JORI MARCUS APRN-C 11/13/17 Diphenoxylate Hcl/Atropine (LOMOTIL TABLET) 1 Each Tablet, 1 EACH PO BID Y for DIARRHEA, #30 TAB 0 Refills Prov:JORI MARCUS APRN-C 11/04/17 Atenolol (ATENOLOL) 25 Mg Tablet, 1 TAB PO QDAY for 30 Days, #30 TAB Prov:ELROY TANNER MD 10/09/17 Tramadol Hcl (TRAMADOL HCL) 50 Mg Tablet, 1 TAB PO TID Y for PAIN, #90 TAB 2 Refills Prov:JORI MARCUS APRN-C 10/01/17 Prazosin Hcl (PRAZOSIN HCL) 1 Mg Capsule, 1 MG PO QHS, #90 CAPSULE 1 Refill Prov:JORI MARCUS DAWOOD [facility] 08/17/17 Clopidogrel Bisulfate (CLOPIDOGREL) 75 Mg Tablet, 1 TAB PO QDAY, #30 TAB 5 Refills To prevent blood clots and stroke Prov:ANGELINEJORI DAWOOD [facility]-C 07/03/17 Sertraline Hcl (SERTRALINE HCL) 100 Mg Tablet, 1 TAB PO QAM, #90 TAB 1 Refill For depression Prov:KRISTINEJoeDANNIJORI APRN [facility] 07/03/17 Losartan Potassium (LOSARTAN POTASSIUM) 100 Mg Tablet, 1 TAB PO DAILY, #90 TAB 1 Refill For blood pressure Prov:KRISTINEJoeDANNIJORI APRN [facility] 07/03/17 Psyllium Husk (PSYLLIUM FIBER) 0.52 Gm Capsule, 2 CAP PO DAILY, #60 CAPSULE 5 Refills Prov:KRISTINEJORGEJORIKENIA SEAY [facility]- 01/16/17 Aspirin (Children's Aspirin) 81 Mg Tab.chew, 81 MG CHEW QDAY, #30 TAB.CHEW Prov:ALBINO BLUE MD 08/22/15 Past Medical/Surgical History Past medical history for restless leg syndrome and peripheral neuropathy. History of hypertension, history of gastroesophageal reflux disease, history of urinary tract infection, history of type II diabetes, past surgical history for carotid endarterectomy in 2014, history of appendectomy and cholecystectomy, history of right shoulder replacement, left total knee replacement and right hip replacement. Hx Smoking: No Smoking Status: Never Smoker Exposure to Second Hand Smoke?: No Hx Substance Use Disorder: No Hx Alcohol Use: No Constitutional Vital Sign - Last 24 Hours 11/21/17 11/21/17 11/21/17 11/21/17 10:02 10:10 10:11 10:17 Temp 97.6 Pulse ??? 58 56 Resp 14 14 B/P (MAP) 188/75 188/75 (112) Pulse Ox 90 93 O2 Delivery Room Air 11/21/17 11/21/17 11/21/17 11/21/17 10:32 10:47 11:02 11:28 Pulse 60 54 ??? Resp 11 21 B/P (MAP) 155/63 (93) Pulse Ox 92 93 11/21/17 11/21/17 11/21/17 11/21/17 11:30 11:32 11:39 11:47 Pulse 57 53 55 58 55 Resp 16 12 B/P (MAP) 155/66 (95) 134/80 (98) 155/63 (93) 155/66 (95) 134/80 (98) Pulse Ox 92 89 11/21/17 11/21/17 12:00 12:09 B/P (MAP) 160/63 (95) O2 Flow Rate 1.0 Intake and Output 11/21/17 11/21/17 11/22/17 15:00 23:00 07:00 Output Total 100 ml Balance -100 ml Physical Exam General/Constitutional: Patient is awake, alert, nontoxic and in no acute respiratory distress. Head: Normocephalic and atraumatic. Eyes: Conjunctival clear, Pupils are equal and reactive to light. Extraocular muscles are intact and symmetrical. Sclera are clear and anicteric. Ears:External canals are clear. Tympanic membranes are clear with normal landmarks and light reflex. Nares: No rhinorrhea or bleeding. Turbinates are pink and moist. Oropharyngeal: Mucous membranes are moist. There is no pharyngeal erythema or exudate. There are no palatal petechiae. Uvula is midline and symmetrical. Neck: Supple, no adenopathy. Cardiovascular: Heart is regular rate and rhythm without audible murmurs, rubs or gallops. Pulmonary: Lungs are clear to auscultation bilaterally. There are no wheezes, rales, or rhonchi. Chest rise is symmetrical Abdomen: Soft, nontender, no guarding or peritoneal signs. Extremities: No gross deformities, No peripheral cyanosis. Able to move all 4 extremities. Patient has point tenderness to the base of the 3rd phalanx of the left hand Neuro: Alert and oriented X3, Cranial nerves 2 thru 12 are intact and symmetrical. Patient has normal gait. Skin: No rashes, skin is warm dry and well perfused. Medical Decision Making Data Points Result Diagram: 11/21/17 1030 11/21/17 1030 Laboratory Hematology Test 11/21/17 10:30 11/21/17 10:36 11/21/17 10:46 Red Blood Count 4.53 M/uL (4.17-5.56) Mean Corpuscular Volume 89.2 fL (80.0-96.0) Mean Corpuscular Hemoglobin 29.8 pg (26.0-33.0) Mean Corpuscular Hemoglobin Concent 33.5 g/dL (32.0-36.0) Red Cell Distribution Width 14.1 % (11.5-14.5) Mean Platelet Volume 8.3 fL (7.2-11.1) Neutrophils (%) (Auto) 62.1 % (39.4-72.5) Lymphocytes (%) (Auto) 20.4 % (17.6-49.6) Monocytes (%) (Auto) 11.5 % (4.1-12.4) Eosinophils (%) (Auto) 4.8 % (0.4-6.7) Basophils (%) (Auto) 1.2 % (0.3-1.4) Nucleated RBC Relative Count (auto) 0.0 /100WBC Neutrophils # (Auto) 6.5 K/uL (2.0-7.4) Lymphocytes # (Auto) 2.1 K/uL (1.3-3.6) Monocytes # (Auto) 1.2 K/uL (0.3-1.0) Eosinophils # (Auto) 0.5 K/uL (0.0-0.5) Basophils # (Auto) 0.1 K/uL (0.0-0.1) Nucleated RBC Absolute Count (auto) 0.00 K/uL Sodium Level 138 mmol/L (137-145) Potassium Level 4.8 mmol/L (3.5-5.0) Chloride Level 104 mmol/L (98-107) Carbon Dioxide Level 22 mmol/L (22-31) Blood Urea Nitrogen 21 mg/dl (7-18) Creatinine 1.50 mg/dl (0.52-1.04) Glomerular Filtration Rate Calc 33.2 Random Glucose 102 mg/dl (75-110) Calcium Level 9.9 mg/dl (8.4-10.2) Magnesium Level 2.0 mg/dl (1.7-2.2) Total Bilirubin 0.7 mg/dl (0.2-1.3) Aspartate Amino Transf (AST/SGOT) 20 U/L (0-35) Alanine Aminotransferase (ALT/SGPT) 23 U/L (0-56) Alkaline Phosphatase 122 U/L (0-126) Total Creatine Kinase 43 U/L (30-135) Troponin I < 0.012 ng/ml B-Type Natriuretic Peptide 293 pg/ml (0-100) Total Protein 7.6 gm/dl (6.3-8.2) Albumin 4.4 g/dl (3.5-5.0) Lipase 41 U/L (23-300) Prothrombin Time 13.4 seconds (12.0-14.4) Prothromb Time International Ratio 1.02 Activated Partial Thromboplast Time 31 seconds (23-35) Urine Color Straw Urine Clarity Clear Urine pH 6.0 pH (4.8-9.5) Urine Specific [place] 1.010 Urine Protein Negative mg/dL (NEGATIVE) Urine Glucose (UA) Negative mg/dL (NEGATIVE) Urine Ketones Negative mg/dL (NEGATIVE) Urine Blood Negative (NEGATIVE) Urine Nitrite Negative (NEGATIVE) Urine Bilirubin Negative (NEGATIVE) Urine Urobilinogen Negative mg/dL (0.2-1.9) Urine Leukocyte Esterase Negative (NEGATIVE) Urine RBC 1 /HPF (0-2/HPF) Urine WBC 1 /HPF (0-5/HPF) Urine Squamous Epithelial Cells Few /LPF (NONE-FEW) Urine Bacteria Negative /HPF (NONE-FEW) Urine Mucus None /HPF (NONE-FEW) Chemistry Test 11/21/17 10:30 11/21/17 10:36 11/21/17 10:46 White Blood Count 10.5 k/uL (4.5-11.0) Red Blood Count 4.53 M/uL (4.17-5.56) Hemoglobin 13.5 g/dL (12.0-16.0) Hematocrit 40.4 % (34.0-47.0) Mean Corpuscular Volume 89.2 fL (80.0-96.0) Mean Corpuscular Hemoglobin 29.8 pg (26.0-33.0) Mean Corpuscular Hemoglobin Concent 33.5 g/dL (32.0-36.0) Red Cell Distribution Width 14.1 % (11.5-14.5) Platelet Count 219 K/uL (150-450) Mean Platelet Volume 8.3 fL (7.2-11.1) Neutrophils (%) (Auto) 62.1 % (39.4-72.5) Lymphocytes (%) (Auto) 20.4 % (17.6-49.6) Monocytes (%) (Auto) 11.5 % (4.1-12.4) Eosinophils (%) (Auto) 4.8 % (0.4-6.7) Basophils (%) (Auto) 1.2 % (0.3-1.4) Nucleated RBC Relative Count (auto) 0.0 /100WBC Neutrophils # (Auto) 6.5 K/uL (2.0-7.4) Lymphocytes # (Auto) 2.1 K/uL (1.3-3.6) Monocytes # (Auto) 1.2 K/uL (0.3-1.0) Eosinophils # (Auto) 0.5 K/uL (0.0-0.5) Basophils # (Auto) 0.1 K/uL (0.0-0.1) Nucleated RBC Absolute Count (auto) 0.00 K/uL Glomerular Filtration Rate Calc 33.2 Calcium Level 9.9 mg/dl (8.4-10.2) Magnesium Level 2.0 mg/dl (1.7-2.2) Total Bilirubin 0.7 mg/dl (0.2-1.3) Aspartate Amino Transf (AST/SGOT) 20 U/L (0-35) Alanine Aminotransferase (ALT/SGPT) 23 U/L (0-56) Alkaline Phosphatase 122 U/L (0-126) Total Creatine Kinase 43 U/L (30-135) Troponin I < 0.012 ng/ml B-Type Natriuretic Peptide 293 pg/ml (0-100) Total Protein 7.6 gm/dl (6.3-8.2) Albumin 4.4 g/dl (3.5-5.0) Lipase 41 U/L (23-300) Prothrombin Time 13.4 seconds (12.0-14.4) Prothromb Time International Ratio 1.02 Activated Partial Thromboplast Time 31 seconds (23-35) Urine Color Straw Urine Clarity Clear Urine pH 6.0 pH (4.8-9.5) Urine Specific [place] 1.010 Urine Protein Negative mg/dL (NEGATIVE) Urine Glucose (UA) Negative mg/dL (NEGATIVE) Urine Ketones Negative mg/dL (NEGATIVE) Urine Blood Negative (NEGATIVE) Urine Nitrite Negative (NEGATIVE) Urine Bilirubin Negative (NEGATIVE) Urine Urobilinogen Negative mg/dL (0.2-1.9) Urine Leukocyte Esterase Negative (NEGATIVE) Urine RBC 1 /HPF (0-2/HPF) Urine WBC 1 /HPF (0-5/HPF) Urine Squamous Epithelial Cells Few /LPF (NONE-FEW) Urine Bacteria Negative /HPF (NONE-FEW) Urine Mucus None /HPF (NONE-FEW) Coagulation Test 11/21/17 10:36 Prothrombin Time 13.4 seconds Prothromb Time International Ratio 1.02 Activated Partial Thromboplast Time 31 seconds Urinalysis Test 11/21/17 10:46 Urine Color Straw Urine Clarity Clear Urine pH 6.0 pH (4.8-9.5) Urine Specific [place] 1.010 Urine Protein Negative mg/dL (NEGATIVE) Urine Glucose (UA) Negative mg/dL (NEGATIVE) Urine Ketones Negative mg/dL (NEGATIVE) Urine Blood Negative (NEGATIVE) Urine Nitrite Negative (NEGATIVE) Urine Bilirubin Negative (NEGATIVE) Urine Urobilinogen Negative mg/dL (0.2-1.9) Urine Leukocyte Esterase Negative (NEGATIVE) Urine RBC 1 /HPF (0-2/HPF) Urine WBC 1 /HPF (0-5/HPF) Urine Squamous Epithelial Cells Few /LPF (NONE-FEW) Urine Bacteria Negative /HPF (NONE-FEW) Urine Mucus None /HPF (NONE-FEW) EKG/Imaging EKG Interpretation EKG shows sinus bradycardia with no significant ST segment or T-wave abnormalities. EKG was compared to EKG from October 2015 no significant difference was found other than ventricular rate which was 67 bpm at that time Monitor Interpretation: Sinus Bradycardia Imaging FACILITY: [facility] PATIENT NAME: Betty Wang : 1935 MR: [id number] V: [id number] EXAM DATE: [id number] ORDERING PHYSICIAN: ALEXIA GUIDO TECHNOLOGIST: Location: [facility] Patient: Betty Wang : 1935 Visit/Account:[id number] Date of Sevice: 11/21/2017 CHEST SINGLE AP chest single view 10:28 AM COMPARISON: 05/06/2017. HISTORY: falls FINDINGS: CARDIAC/VASC: Mild cardiomegaly. Unremarkable pulmonary vasculature. MEDIASTINUM: No visible mass or adenopathy. Aortic calcifications. LUNGS/PLEURA: No pneumothorax. Diffuse interstitial prominence, possible bronchial wall thickening versus artifact of technique. No costophrenic angle blunting to suggest the presence of a significant effusion. BONES: No fracture or visible bony lesion. No appreciable rib fractures seen within the limitations of chest x-ray technique. Reverse right shoulder plasty. Visualized components are in good alignment. Mild left glenohumeral osteoarthritis. OTHER: Right upper quadrant cholecystectomy clips. IMPRESSION: 1. No radiographic evidence of acute traumatic chest injury. 2. Diffuse interstitial prominence which could be bronchial wall thickening or artifact due to technique. Report Dictated By: Flavio Reynaga at 11/21/2017 11:37 AM Report E-Signed By: Flavio Reynaga at 11/21/2017 11:39 AM WSN:[id number] FACILITY: [facility] PATIENT NAME: Betty Wang : 1935 MR: [id number] V: [id number] EXAM DATE: ORDERING PHYSICIAN: ALEXIA GUIDO TECHNOLOGIST: Location: [facility] Patient: Betty Wang : 1935 Visit/Account:[id number] Date of Sevice: 11/21/2017 HAND COMPLETE LEFT COMPARISON: None. HISTORY: Fall with middle finger pain TECHNIQUE: 3 views of the left hand were obtained. FINDINGS: BONES: Demineralized suggesting osteopenia which makes assessment for subtle fractures suboptimal by plain films. With this noted on the AP film only, there are small apparent cortical lucencies in the base of the middle finger middle phalanx and these are suspicious for acute nondisplaced intra-articular fracture. These are not confirmed on the other views. There is overlap with the other fingers on the lateral view limiting assessment. Advanced first carpometacarpal joint osteoarthritis with bulky spurring and joint space narrowing. Moderate degenerative changes in the IP joints of multiple fingers. SOFT TISSUES: Negative. No visible soft tissue swelling. OTHER: Negative. IMPRESSION: Demineralized bones suggesting osteopenia. On one view, there are findings which could represent a nondisplaced fracture of the base of the middle finger middle phalanx. Point tenderness correlation recommended. Report Dictated By: Flavio Reynaga at 11/21/2017 11:59 AM Report E-Signed By: Flavio Dallastta at 11/21/2017 12:02 PM WSN:[id number] ED Course/Re-evaluation Clinical Indication for ER IV: IV Access ED Course 11/21/2017 11:06:06 am bloodwork at this time is essentially unremarkable. She does have a slightly elevated BUN/creatinine ratio suggesting some dehydration. Troponin was negative. Urinalysis is normal. Patient is also taking atenolol which was just started with her last admission to hospital. This certainly could explain the patient's lower heart rate and may also explain the cause of her syncope. Plan at this time will be to obtain CT scan of the head still awaiting folate and B12 studies and chest x-ray. Patient's daughter was made aware of recurrent ED course and plan no questions or concerns at this time. 11/21/2017 1:04:04 pm spoke with from [facility] for neurosurgery. History physical exam pertinent lab data and imaging studies discussed. Patient with intraventricular hemorrhage with a GCS of 15 blood pressure is currently controlled. Dr. Miner request that we give platelets I informed him that we do not carry platelets are facility in fact we get them from his hospital if required. Dr. Miner said he would see the patient in consultation but requested that we admit the patient to the hospitalist service under Dr. Chapman, I am awaiting for return call at this time. Re-evaluation 11/21/2017 11:48:12 am orthostatics were performed at this time. Patient dropped systolic blood pressure by just greater than 20 mmHg going from lying to standing. Heart rate remained bradycardic and had no appreciable change. 11/21/2017 12:39:[address] scan is worrisome for an intraventricular hemorrhage to the left posterior horn. When compared with prior CT of the head 2014 there is no evidence of bleeding. Further the Hounsfield units are more concerning for hemorrhage rather than calcification. Patient also has a nondisplaced fracture to the base of the 3rd phalanx. [facility] was consulted I am waiting to hear back from them at this time. Patient's heart rate remains in the upper 50s her GCS is 15 her most recent blood pressure is 135/61 with a mean arterial pressure of 86. Patient and daughter were made aware of findings and need for transfer to higher level of care. We'll also add type and screen to this patient's lab work so she can receive platelets as soon as possible. 11/21/2017 1:46:27 pm just informed by ED staff patient now developing headache. Patient will be given 25 g of fentanyl current blood pressure is 132/ 58. Patient pending transport at this time. Physical exam is unchanged, GCS is 15, pupils are equal and symmetrical. Patient is refusing to have lab obtain a type and screen at this time, explained that this will be a necessary part of her treatment. She is refusing to have [facility] draw the blood here she prefers blood draw at [facility]. Decision to Disposition Date: Nov 21, 2017 Decision to Disposition Time: 13:19 Depart Departure Latest Vital Signs Vital Signs Date Time Temp Pulse Resp B/P (MAP) Pulse Ox O2 Delivery O2 Flow Rate FiO2 11/21/17 12:09 1.0 11/21/17 12:00 160/63 (95) 11/21/17 11:47 55 12 89 11/21/17 10:10 97.6 Room Air Impression: Primary Impression: Intraventricular hemorrhage Additional Impression: Finger fracture, left Condition: Condition Unchanged Disposition: XFER TO [facility] (To [facility] under [place]) Referrals: JORI MARCUS APRN [facility] (PCP) Problem Qualifiers Additional Impression: Finger fracture, left Encounter type: initial encounter Finger: middle finger Fracture type: closed Phalanx: distal Fracture alignment: nondisplaced Qualified Codes: S62.663A - Nondisplaced fracture of distal phalanx of left middle finger, initial encounter for closed fracture ALEXIA GUIDO MD Nov 21, 2017 10:07
--- NOTE | 2017-11-21 10:32 | EKG ---
FACILITY: [facility] [place] PATIENT NAME: CARMELLA POE : [id number] MR: [id number] V: [id number] EXAM DATE: ORDERING PHYSICIAN: ALEXIA GUIDO TECHNOLOGIST: LIZZETTE Angelo Reason : CONFUSION Blood Pressure : / mmHG Vent. Rate : 055 BPM Atrial Rate : 055 BPM P-R Int : 166 ms QRS Dur : 088 ms QT Int : 428 ms P-R-T Axes : 062 039 070 degrees QTc Int : 409 ms Sinus bradycardia Otherwise normal ECG T wave normalization anteriorly Confirmed by JENNIFER SCHUSTER ([id number]) on 11/21/2017 4:39:09 PM Referred By: HAY Confirmed By:JENNIFER SCHUSTER
[2017-11-21 10:43] LABS: PLATELET COUNT, AUTOMATED 219 K/uL (150-450)
[2017-11-21] MEDS ORDERED: NS(*) 0.9% 500 ML BAG 500 ML IV ONE (10:55)
--- NOTE | 2017-11-21 11:43 | RADIOLOGY IMAGING REPORT ---
FACILITY: [facility] [place] PATIENT NAME: Betty Wang : 1935 MR: [id number] V: [id number] EXAM DATE: ORDERING PHYSICIAN: ALEXIA GUIDO TECHNOLOGIST: Location: [facility] [place] Patient: Betty Wang : 1935 Visit/Account:[id number] Date of Sevice: 11/21/2017 CHEST SINGLE AP chest single view 10:28 AM COMPARISON: 05/06/2017. HISTORY: falls FINDINGS: CARDIAC/VASC: Mild cardiomegaly. Unremarkable pulmonary vasculature. MEDIASTINUM: No visible mass or adenopathy. Aortic calcifications. LUNGS/PLEURA: No pneumothorax. Diffuse interstitial prominence, possible bronchial wall thickening v ersus artifact of technique. No costophrenic angle blunting to suggest the presence of a significant effusion. BONES: No fracture or visible bony lesion. No appreciable rib fractures seen within the limitat ions of chest x-ray technique. Reverse right shoulder plasty. Visualized components are in good align ment. Mild left glenohumeral osteoarthritis. OTHER: Right upper quadrant cholecystectomy clips. IMPRESSION: 1. No radiographic evidence of acute traumatic chest injury. 2. Diffuse interstitial prominence which could be bronchial wall thickening or artifact due to techn ique. Report Dictated By: Flavio Reynaga at 11/21/2017 11:37 AM Report E-Signed By: Flavio Reynaga at 11/21/2017 11:39 AM WSN:[id number]
--- NOTE | 2017-11-21 12:05 | RADIOLOGY IMAGING REPORT ---
FACILITY: [facility] [place] PATIENT NAME: Betty Wang : 1935 MR: [id number] V: [id number] EXAM DATE: ORDERING PHYSICIAN: ALEXIA GUIDO TECHNOLOGIST: Location: [facility] [place] Patient: Betty Wang : 1935 Visit/Account:[id number] Date of Sevice: 11/21/2017 HAND COMPLETE LEFT COMPARISON: None. HISTORY: Fall with middle finger pain TECHNIQUE: 3 views of the left hand were obtained. FINDINGS: BONES: Demineralized suggesting osteopenia which makes assessment for subtle fractures suboptimal by plain films. With this noted on the AP film only, there are small apparent cortical lucencies in the base of the middle finger middle phalanx and these are suspicious for acute nondisplaced intra-artic ular fracture. These are not confirmed on the other views. There is overlap with the other fingers on the lateral view limiting assessment. Advanced first carpometacarpal joint osteoarthritis with bulky spurring and joint space narrowing. Moderate degenerative changes in the IP joints of multiple finge rs. SOFT TISSUES: Negative. No visible soft tissue swelling. OTHER: Negative. IMPRESSION: Demineralized bones suggesting osteopenia. On one view, there are findings which could represent a no ndisplaced fracture of the base of the middle finger middle phalanx. Point tenderness correlation rec ommended. Report Dictated By: Flavio Reynaga at 11/21/2017 11:59 AM Report E-Signed By: Flavio Reynaga at 11/21/2017 12:02 PM WSN:[id number]
--- NOTE | 2017-11-21 12:20 | RADIOLOGY IMAGING REPORT ---
FACILITY: [facility] [place] PATIENT NAME: Betty Wang : 1935 MR: [id number] V: [id number] EXAM DATE: ORDERING PHYSICIAN: ALEXIA GUIDO TECHNOLOGIST: Location: [facility] [place] Patient: Betty Wang : 1935 Visit/Account:[id number] Date of Sevice: 11/21/2017 CT Head without contrast Indication: Fall. Comparison: 06/25/2015. Technique: Axial CT images were obtained through the brain from the skull base to the vertex without administration of IV contrast. Reformatted coronal and sagittal images were also obtained. One of the following dose optimization techniques was utilized in the performance of this exam: autom ated exposure control; adjustment of the mA and/or kV according to the patient's size; or use of an i terative reconstruction technique. Specific details can be referenced in the facility's radiology CT exam operational policy. Findings: No evidence of mass, mass effect, or midline shift. There is increased attenuation in the posterior horn of the left ventricle, adjacent to the choroid c alcifications. This measures 74 Hounsfield unit with the choroid calcifications measuring 172. This i s worrisome for intraventricular hemorrhage. The previous exam was unable to be retrieved. No other i ndication of intracranial bleed. No extra axial fluid collection or hydrocephalus. Age-related cerebral atrophy. Periventricular white matter ischemic changes consistent small vessel disease. Banks/white matter differentiation appears n ormal. Mild bilateral internal carotid artery calcifications. Bony structures show no fractures or lesions. Mild mucosal thickening seen in the left maxillary sinus with a small cyst/polyps in the right maxill kari sinus. The remaining sinuses and mastoids visualized are clear. IMPRESSION: 1. There is increased attenuation in the posterior horn of the left ventricle. This is worrisome for intraventricular hemorrhage. There does not appear to been associated sequelae no discrete indication of hydrocephalus. The previous exam is unable to be retrieved. This measures less than the choroid c alcifications. This could be faint calcifications however the previous exam was unable to be retrieve d for comparison. 2. The brain otherwise shows senescent changes. 3. Mild sinus disease. I called report to Bartolome Bird at 11/21/2017 12:13 PM. Report Dictated By: Ganga Cantrell at 11/21/2017 11:59 AM Report E-Signed By: Ganga Cantrell at 11/21/2017 12:16 PM WSN:[id number]
[2017-11-21 12:41] LABS: INR 1.02
[2017-11-21] MEDS ORDERED: fentaNYL CITR 100 MCG/2 ML AMP IVP ONE (13:45)
[2017-11-21 14:00] VITALS: BP 132/104
== END 2017-11-21 15:05 | disposition short-term general hospital (02) ==
LOC: ER 10:16
DX: I61.5 Nontraumatic intracerebral hemorrhage, intraventricular (principal); S62.663A Nondisplaced fracture of distal phalanx of left middle finger, initial encounter for closed fracture; R00.1 Bradycardia, unspecified; Z91.81 History of falling; I51.7 Cardiomegaly
CPT/HCPCS: 36415; 70450; 71045; 73130; 81001; 82550; 82607; 82746; 83690; 83735; 83880; 84443; 84484; 85025; 85610; 85730; 87088; 93005; 96361; 96374; 99285; A4353; J3010; J7040; 82040; 82247; 82310; 82374; 82435; 82565; 82947; 84075; 84132; 84155; 84295; 84450; 84460; 84520

== ENCOUNTER → 2017-11-21 | Outpatient (CLI) | payer MEDICARE, MEDICAID ==
[2017-10-07 08:35] VITALS: BMI 23.6
[~2017-11-21] MED LIST changes: +AMLO-96 PO
== END ==
LOC: AMB 14:30
PROVIDERS: ATTEND Nurse Practitioner
DX: S06.360A Traumatic hemorrhage of cerebrum, unspecified, without loss of consciousness, initial encounter (principal); S62.605A Fracture of unspecified phalanx of left ring finger, initial encounter for closed fracture; W19.XXXA Unspecified fall, initial encounter
CPT/HCPCS: A0425; A0428

== ENCOUNTER 2018-01-19 20:49 | Emergency (ER) | payer MEDICARE, MEDICAID ==
[2017-10-07 08:35] VITALS: Wt 59.0 kg
--- NOTE | 2018-01-19 21:02 | ER Report ---
History and Physical Time Seen By MD: 21:02 Hx. of Stated Complaint: PATIENT HAD FALL, HIT HEAD ON CUPBOARD, HAS LACERATION TO THE BACK OF HEAD. PATIENT HAVING PAIN IN SHOULDERS WELL. HPI/ROS CHIEF COMPLAINT: Fall, head injury HISTORY OF PRESENT ILLNESS: This is an 83 year old female. She lost her balance , said she slipped on a dishcloth. She fell backward and hit her head. She has a headache and some shoulder pain. She denies any other pain. She did not lose consciousness and remembers everything before, during and after the fall. REVIEW OF SYSTEMS: Constitutional: No fever or chills. Eyes: No vision changes. Cardiovascular: No chest pain. Respiratory: No cough. No shortness of breath. Gastrointestinal: No abdominal pain. No nausea or vomiting. Genitourinary: Denies problems with urination. Musculoskeletal: As above. Skin: No rashes. Scalp laceration. Allergies: Coded Allergies: azithromycin (Verified Allergy, Intermediate, 01/19/18) per patient's daughter JUD Inhibitors (Unverified Allergy, Unknown, 01/19/18) Cough Home Meds Active Scripts Diphenoxylate Hcl/Atropine (LOMOTIL TABLET) 1 Each Tablet, 1 EACH PO BID Y for DIARRHEA, #30 TAB 2 Refills Prov:JORI MARCUS APRN-C 01/18/18 Metoprolol Tartrate (METOPROLOL TARTRATE) 25 Mg Tablet, 1 TAB PO BID, #90 TAB 1 Refill Prov:JORI MARCUS APRNP-C 01/06/18 Amlodipine Besylate (AMLODIPINE BESYLATE) 5 Mg Tablet, 1 TAB PO DAILY, #30 TAB 0 Refills Prov:JORI MARCUS APRN-C 11/13/17 Sertraline Hcl (SERTRALINE HCL) 100 Mg Tablet, 1 TAB PO QAM, #90 TAB 1 Refill For depression Prov:JORI MARCUS APRNP-C 07/03/17 Losartan Potassium (LOSARTAN POTASSIUM) 100 Mg Tablet, 1 TAB PO DAILY, #90 TAB 1 Refill For blood pressure Prov:JORI MARCUS APRNP-C 07/03/17 Reviewed Nurses Notes: Yes Hx Smoking: No Smoking Status: Never Smoker Exposure to Second Hand Smoke?: No Hx Substance Use Disorder: No Hx Alcohol Use: No Constitutional Vital Sign - Last 24 Hours 01/19/18 01/19/18 01/19/18 01/19/18 20:49 21:00 21:04 21:19 Pulse 57 55 57 Resp 24 13 16 B/P (MAP) 159/62 (94) Pulse Ox 90 90 90 O2 Delivery Room Air 01/19/18 01/19/18 01/19/18 01/19/18 21:30 21:34 21:49 21:54 Pulse 55 57 54 Resp 12 21 10 B/P (MAP) 156/61 (92) Pulse Ox 90 90 88 01/19/18 01/19/18 01/19/18 01/19/18 22:54 23:00 23:09 23:24 Pulse 54 53 52 B/P (MAP) 166/78 (107) Pulse Ox 89 91 88 01/19/18 01/19/18 01/19/18 01/19/18 23:30 23:39 23:44 23:59 Pulse 52 50 52 B/P (MAP) 149/75 (99) Pulse Ox 90 89 87 01/20/18 01/20/18 01/20/18 01/20/18 00:00 00:29 00:30 00:44 Pulse 53 55 B/P (MAP) 115/56 (75) 130/114 (119) Pulse Ox 90 88 01/20/18 01/20/18 01/20/18 01/20/18 01:00 01:14 01:29 01:30 Pulse 55 54 B/P (MAP) 121/72 (88) 180/68 (105) Pulse Ox 84 92 01/20/18 01:35 Pulse 54 Pulse Ox 93 Physical Exam General Appearance: The patient is alert. No acute distress. Eyes: Pupils are equal, round. Reactive to light. No pallor, injection or icterus. Extraocular movements are intact. ENT: Mucous membranes are moist. Normal oral mucosa. Posterior oropharynx is normal. Neck: Supple and non tender anteriorly. Respiratory: Breathing easily and unlabored. Lungs are clear to auscultation. Has some rib pain on the right with palpation of chest. Cardiovascular: Regular rate and rhythm. No murmurs, gallops or rubs. Normal capillary refill. Gastrointestinal: Abdomen is soft and non tender. Nondistended. Normal active bowel sounds. Neurological: Alert and oriented x3. Cranial nerves II through XII show no acute deficits on my exam other than being hard of hearing. No focal neurologic deficits in the extremities. Skin: Warm and dry. Laceration on superior occipital scalp. Musculoskeletal: Extremities are nontender. Full range of motion. Has tenderness in palpation of the cervical, thoracic and the lumbar spine. DIFFERENTIAL DIAGNOSIS: After history and physical exam, differential diagnosis was considered for fall with head injury. Also with neck and back pain on evaluation/physical exam. with some rib pain on the left as well. Medical Decision Making EKG/Imaging Imaging HEAD CT: Indication: Injury. Technique: Contiguous axial sections were obtained from the base to the vertex without contrast enhancement. One of the following dose optimization techniques was utilized in the performance of this exam: Automated exposure control; adjustment of the mA and/ or kV according to the patient's size; or use of an iterative reconstruction technique. Specific details can be referenced in the facility's radiology CT exam operational policy. Comparison: 11/21/2017 Findings: There is no evidence of intra-axial or extra-axial hemorrhage. There is chronic cerebral cortical atrophy and periventricular white matter disease, without significant change. No new focal areas of decreased or increased attenuation are identified. There is no evidence of mass, edema, or shift of the midline structures. The size, shape, and configuration of the ventricular system are stable. The skeletal structures are intact and unremarkable. There is no evidence of fracture or other acute deformity. There is diffuse mucosal abnormality in the right maxillary sinus and nasal passages. There is minimal mucosal abnormality in the left maxillary sinus and ethmoid air cells. The frontal and sphenoid sinuses are clear. The mastoid air cells are clear. Impression: Chronic atrophy and white matter disease. No evidence of hemorrhage , fracture, or acute deformity. Report Dictated By: Ho Pulido MD at 01/19/2018 11:[address] of the cervical spine without contrast: Indication: Injury. Technique: Helical CT was performed from the base of the skull through the upper thoracic spine without contrast. Axial, coronal, and sagittal reconstructions are reviewed. One of the following dose optimization techniques was utilized in the performance of this exam: Automated exposure control; adjustment of the mA and/ or kV according to the patient's size; or use of an iterative reconstruction technique. Specific details can be referenced in the facility's radiology CT exam operational policy. Comparison: None. Findings: There is no evidence of fracture, compression, subluxation, or other acute deformity. There are advanced degenerative changes at C1-C2 and from C5 through C7. Milder degenerative changes are observed elsewhere throughout the cervical spine. There is scoliotic curvature with convexity to the right. There is generalized demineralization, consistent with osteoporosis. No paraspinal soft tissue abnormalities are identified. IMPRESSION: No evidence of fracture or acute deformity. Advanced degenerative changes. Report Dictated By: Ho Pulido MD at 01/19/2018 11:[address] of the thoracic spine without contrast: Indication: Injury. Technique: Helical CT was performed through the thoracic spine without contrast. Axial, coronal, and sagittal reconstructions are reviewed. One of the following dose optimization techniques was utilized in the performance of this exam: Automated exposure control; adjustment of the mA and/ or kV according to the patient's size; or use of an iterative reconstruction technique. Specific details can be referenced in the facility's radiology CT exam operational policy. Comparison: None. Findings: There is no evidence of fracture, compression, subluxation, or other acute deformity. There is moderate to marked degenerative disc disease and osteoarthritis at multiple levels. There is minimal scoliosis, with double curvature. There is diffuse demineralization, compatible with osteoporosis. No acute paraspinal soft tissue abnormalities are identified. There is diffuse atherosclerotic calcification in the thoracic aorta and coronary arteries. There are no signs of aortic aneurysm. There are chronic fibrotic opacities and calcified granulomas in the lungs. No acute parenchymal or pleural process is identified. IMPRESSION: No evidence of fracture or acute deformity. Report Dictated By: Ho Pulido MD at 01/19/2018 11:[address] of the lumbar spine without contrast: Indication: Injury. Technique: Helical CT was performed through the lumbar spine without contrast. Axial, coronal, and sagittal reconstructions are reviewed. One of the following dose optimization techniques was utilized in the performance of this exam: Automated exposure control; adjustment of the mA and/ or kV according to the patient's size; or use of an iterative reconstruction technique. Specific details can be referenced in the facility's radiology CT exam operational policy. Comparison: None. Findings: There is no evidence of fracture, compression, subluxation, or other acute deformity. There is moderate/marked degenerative disc disease and osteoarthritis in the upper and lower lumbar spine. There is mild scoliosis with convexity to the left. There is generalized demineralization, compatible with osteoporosis. No paraspinal soft tissue abnormalities are identified. IMPRESSION: No evidence of fracture or acute deformity. Report Dictated By: Ho Pulido MD at 01/19/2018 11:42 PM 2 VIEWS CHEST INDICATION: Fall. COMPARISON: 11/21/2017. FINDINGS: The heart remains mildly enlarged but unchanged. Mediastinal silhouette and pulmonary vessels within normal limits. There is no focal infiltrate or lobar consolidation. There is no pneumothorax or pleural effusion. No discrete nodule. Upper abdomen is unremarkable. No acute bony abnormality. IMPRESSION: 1. No acute cardiopulmonary process. Report Dictated By: Ganga Cantrell at 01/19/2018 10:53 PM RIBS LEFT INDICATION: Fall.. COMPARISON: None Available. FINDINGS: The ribs show no discrete or displaced rib fractures. No appreciable bony lesions. Degenerative change seen in the left shoulder. Right shoulder show arthroplasty changes without sequelae. Lungs clear without indication of consolidation, pneumothorax or pleural effusion. Upper abdomen is unremarkable. IMPRESSION: 1. No indication of discrete or displaced rib fractures. Report Dictated By: Ganga Cantrell at 01/19/2018 10:55 PM ED Course/Re-evaluation ED Course Procedure: Laceration Repair Verbal consent from patient after discussing repair options, risks and benefits. Wound cleaned extensively with Hibiclens and saline. Anesthesia: 1% lidocaine without epinephrine and 0.5% bupivacaine without epinephrine. Location: Superior occipital scalp. Length: 3 cm. Character: Linear. Wound repair: 3 yash. The wound repair was simple and performed by myself. Wound care instructions discussed. Yash need to be removed in 7 days Decision to Disposition Date: January 20, 2018 Decision to Disposition Time: 01:50 Depart Departure Latest Vital Signs Vital Signs Date Time Temp Pulse Resp B/P (MAP) Pulse Ox O2 Delivery O2 Flow Rate FiO2 01/20/18 01:35 54 93 01/20/18 01:30 180/68 (105) 01/19/18 21:54 10 01/19/18 20:49 Room Air Impression: Primary Impression: Frequent falls Additional Impression: Scalp laceration Condition: Improved Disposition: HOME OR SELF-CARE Referrals: JORI MARCUS APRN HEDIS NURSE-C (PCP) Patient Instructions: Laceration (ED) Additional Instructions: Wound Care: Wash the wound once a day with soap and water. Dry the wound and apply a small amount of antibiotic ointment. Yash need to be removed in 5-7 days. Pain Control: Use Tylenol or ibuprofen for pain. Using and ice pack can help reduce swelling Problem Qualifiers Additional Impression: Scalp laceration Encounter type: initial encounter Qualified Codes: S01.01XA - Laceration without foreign body of scalp, initial encounter ABEL MALONE MD January 19, 2018 21:02
--- NOTE | 2018-01-19 23:01 | RADIOLOGY IMAGING REPORT ---
FACILITY: [facility] - [place] PATIENT NAME: Betty Wang : 1935 MR: [id number] V: [id number] EXAM DATE: ORDERING PHYSICIAN: ABEL MALONE TECHNOLOGIST: Location: [facility] Patient: Betty Wang : 1935 Visit/Account:[id number] Date of Sevice: 01/19/2018 2 VIEWS CHEST INDICATION: Fall. COMPARISON: 11/21/2017. FINDINGS: The heart remains mildly enlarged but unchanged. Mediastinal silhouette and pulmonary vessels within normal limits. There is no focal infiltrate or lobar consolidation. There is no pneumothorax or pleural effusion. No discrete nodule. Upper abdomen is unremarkable. No acute bony abnormality. IMPRESSION: 1. No acute cardiopulmonary process. Report Dictated By: Ganga Cantrell at 01/19/2018 10:53 PM Report E-Signed By: Ganga Cantrell at 01/19/2018 10:55 PM WSN:[id number]
--- NOTE | 2018-01-19 23:04 | RADIOLOGY IMAGING REPORT ---
[place] [facility] [place] NAME: Betty Wang : 1935 MR: [id number] V: [id number] EXAM DATE: ORDERING PHYSICIAN: ABEL MALONE TECHNOLOGIST: Location: [facility] Patient: Betty Wang : 1935 Visit/Account:[id number] Date of Sevice: 01/19/2018 RIBS LEFT INDICATION: Fall.. COMPARISON: None Available. FINDINGS: The ribs show no discrete or displaced rib fractures. No appreciable bony lesions. Degenera tive change seen in the left shoulder. Right shoulder show arthroplasty changes without sequelae. Hanna gs clear without indication of consolidation, pneumothorax or pleural effusion. Upper abdomen is unre markable. IMPRESSION: 1. No indication of discrete or displaced rib fractures. Report Dictated By: Ganga Cantrell at 01/19/2018 10:55 PM Report E-Signed By: Ganga Cantrell at 01/19/2018 10:58 PM WSN:[id number]
--- NOTE | 2018-01-19 23:41 | RADIOLOGY IMAGING REPORT ---
FACILITY: [facility] PATIENT NAME: Betty Wang : 1935 MR: [id number] V: [id number] EXAM DATE: ORDERING PHYSICIAN: ABEL MALONE TECHNOLOGIST: Location: [facility] Patient: Betty Wang : 1935 Visit/Account:[id number] Date of Sevice: 01/19/[address]: Indication: Injury. Technique: Contiguous axial sections were obtained from the base to the vertex without contrast enhan cement. One of the following dose optimization techniques was utilized in the performance of this exam: Autom ated exposure control; adjustment of the mA and/or kV according to the patient's size; or use of an i terative reconstruction technique. Specific details can be referenced in the facility's radiology CT exam operational policy. Comparison: 11/21/2017 Findings: There is no evidence of intra-axial or extra-axial hemorrhage. There is chronic cerebral co rtical atrophy and periventricular white matter disease, without significant change. No new focal are as of decreased or increased attenuation are identified. There is no evidence of mass, edema, or shif t of the midline structures. The size, shape, and configuration of the ventricular system are stable. The skeletal structures are intact and unremarkable. There is no evidence of fracture or other acute deformity. There is diffuse mucosal abnormality in the right maxillary sinus and nasal passages. Ther e is minimal mucosal abnormality in the left maxillary sinus and ethmoid air cells. The frontal and s phenoid sinuses are clear. The mastoid air cells are clear. Impression: Chronic atrophy and white matter disease. No evidence of hemorrhage, fracture, or acute d eformity. Report Dictated By: Ho Pulido MD at 01/19/2018 11:28 PM Report E-Signed By: Ho Pulido MD at 01/19/2018 11:37 PM WSN:[id number]
--- NOTE | 2018-01-19 23:44 | RADIOLOGY IMAGING REPORT ---
FACILITY: [facility] [place] PATIENT NAME: Betty Wang : 1935 MR: [id number] V: [id number] EXAM DATE: ORDERING PHYSICIAN: ABEL MALONE TECHNOLOGIST: Location: [facility] [place] Patient: Betty Wang : 1935 Visit/Account:[id number] Date of Sevice: 01/19/2018 CT of the cervical spine without contrast: Indication: Injury. Technique: Helical CT was performed from the base of the skull through the upper thoracic spine witho ut contrast. Axial, coronal, and sagittal reconstructions are reviewed. One of the following dose optimization techniques was utilized in the performance of this exam: Autom ated exposure control; adjustment of the mA and/or kV according to the patient's size; or use of an i terative reconstruction technique. Specific details can be referenced in the facility's radiology C T exam operational policy. Comparison: None. Findings: There is no evidence of fracture, compression, subluxation, or other acute deformity. There are advanced degenerative changes at C1-C2 and from C5 through C7. Milder degenerative changes are o bserved elsewhere throughout the cervical spine. There is scoliotic curvature with convexity to the r ight. There is generalized demineralization, consistent with osteoporosis. No paraspinal soft tissue abnormalities are identified. IMPRESSION: No evidence of fracture or acute deformity. Advanced degenerative changes. Report Dictated By: Ho Pulido MD at 01/19/2018 11:37 PM Report E-Signed By: Ho Pulido MD at 01/19/2018 11:42 PM WSN:[id number]
--- NOTE | 2018-01-19 23:51 | RADIOLOGY IMAGING REPORT ---
FACILITY: [facility] PATIENT NAME: Betty Wang : 1935 MR: [id number] V: [id number] EXAM DATE: ORDERING PHYSICIAN: ABEL MALONE TECHNOLOGIST: Location: [facility] [place] Patient: Betty Wang : 1935 Visit/Account:[id number] Date of Sevice: 01/19/2018 CT of the lumbar spine without contrast: Indication: Injury. Technique: Helical CT was performed through the lumbar spine without contrast. Axial, coronal, and sa gittal reconstructions are reviewed. One of the following dose optimization techniques was utilized in the performance of this exam: Autom ated exposure control; adjustment of the mA and/or kV according to the patient's size; or use of an i terative reconstruction technique. Specific details can be referenced in the facility's radiology CT exam operational policy. Comparison: None. Findings: There is no evidence of fracture, compression, subluxation, or other acute deformity. There is moderate/marked degenerative disc disease and osteoarthritis in the upper and lower lumbar spine. There is mild scoliosis with convexity to the left. There is generalized demineralization, compatibl e with osteoporosis. No paraspinal soft tissue abnormalities are identified. IMPRESSION: No evidence of fracture or acute deformity. Report Dictated By: Ho Pulido MD at 01/19/2018 11:42 PM Report E-Signed By: Ho Pulido MD at 01/19/2018 11:48 PM WSN:[id number]
--- NOTE | 2018-01-19 23:55 | RADIOLOGY IMAGING REPORT ---
FACILITY: [facility] PATIENT NAME: Betty Wang : 1935 MR: [id number] V: [id number] EXAM DATE: ORDERING PHYSICIAN: ABEL MALONE [place]CHNOLOG[place]: [place] [facility] [place]: [place] : 1935 Visit/Account:[id number] Date of Sevice: 01/19/2018 CT of the thoracic spine without contrast: Indication: Injury. Technique: Helical CT was performed through the thoracic spine without contrast. Axial, coronal, and sagittal reconstructions are reviewed. One of the following dose optimization techniques was utilized in the performance of this exam: Autom ated exposure control; adjustment of the mA and/or kV according to the patient's size; or use of an i terative reconstruction technique. Specific details can be referenced in the facility's radiology C T exam operational policy. Comparison: None. Findings: There is no evidence of fracture, compression, subluxation, or other acute deformity. There is moderate to marked degenerative disc disease and osteoarthritis at multiple levels. There is mini mal scoliosis, with double curvature. There is diffuse demineralization, compatible with osteoporosis . No acute paraspinal soft tissue abnormalities are identified. There is diffuse atherosclerotic calcif ication in the thoracic aorta and coronary arteries. There are no signs of aortic aneurysm. There are chronic fibrotic opacities and calcified granulomas in the lungs. No acute parenchymal or pleural pr ocess is identified. IMPRESSION: No evidence of fracture or acute deformity. Report Dictated By: Ho Pulido MD at 01/19/2018 11:48 PM Report E-Signed By: Ho Pulido MD at 01/19/2018 11:53 PM WSN:[id number]
[2018-01-20 01:30] VITALS: BP 180/68
== END 2018-01-20 01:59 | disposition home or self-care (01) ==
LOC: ER 21:00
DX: S01.01XA Laceration without foreign body of scalp, initial encounter (principal)
CPT/HCPCS: 70450; 71046; 71100; 72125; 72128; 72131; 99284

== ENCOUNTER → 2018-01-19 | Outpatient (CLI) | payer MEDICARE, MEDICAID ==
[2017-10-07 08:35] VITALS: BMI 23.6
[~2018-01-19] MED LIST changes: -ASPI-816 CHEW; +ASPI-870 CHEW
== END ==
LOC: AMB 20:23
PROVIDERS: ATTEND Nurse Practitioner
DX: S01.01XA Laceration without foreign body of scalp, initial encounter (principal); R09.02 Hypoxemia; W18.39XA Other fall on same level, initial encounter
CPT/HCPCS: A0425; A0427

== ENCOUNTER → 2018-02-04 | Outpatient (CLI) | payer MEDICARE, MEDICAID ==
[2017-10-07 08:35] VITALS: BMI 23.6
[2018-02-04 15:16] LABS: PLATELET COUNT, AUTOMATED 366 K/uL (150-450)
== END ==
LOC: LAB 14:47
PROVIDERS: ATTEND Nurse Practitioner Family
DX: E11.9 Type 2 diabetes mellitus without complications (principal); R79.89 Other specified abnormal findings of blood chemistry; R11.2 Nausea with vomiting, unspecified; R10.13 Epigastric pain; R10.11 Right upper quadrant pain
CPT/HCPCS: 36415; 82040; 82150; 82247; 82310; 82374; 82435; 82565; 82947; 83036; 83690; 83880; 84075; 84132; 84155; 84295; 84450; 84460; 84520; 85025

== ENCOUNTER 2018-05-10 17:38 | Emergency (ER) | payer MEDICARE, MEDICAID ==
[2017-10-07 08:35] VITALS: Wt 61.2 kg
[~2018-05-10 17:38] MED LIST changes: +AMLO-99 PO; +IBUP-136 PO; -IBUP200C71 PO
--- NOTE | 2018-05-10 17:49 | ER Report ---
History and Physical Time Seen By MD: 17:50 HPI/ROS CHIEF COMPLAINT: Right hip pain HISTORY OF PRESENT ILLNESS: 83-year-old female patient presents to emergency room with complaint of right hip pain. Patient states this started just prior to arrival. Patient states that she was getting up and heard a pop in her right hip. Patient states that since then she's been having significant amounts of pain. She's not been able to bear any weight. She denies having any numbness or tingling to her toes. Patient states she is not taking any medication for this. Patient does have a replacement of the right hip. REVIEW OF SYSTEMS: Respiratory: No cough, no dyspnea. Cardiovascular: No chest pain, no palpitations. Gastrointestinal: No vomiting, no abdominal pain. Musculoskeletal: As noted above Allergies: Coded Allergies: azithromycin (Verified Allergy, Intermediate, 05/10/18) per patient's daughter JUD Inhibitors (Unverified Allergy, Unknown, 05/10/18) Cough Home Meds Active Scripts Hydrocodone Bit/Acetaminophen (HYDROCODON-ACETAMINOPHEN 5-325) 1 Each Tablet, 1 EACH PO Q4-6H PRN for PAIN, #8 TAB Prov:NIC JUAN [employer] 05/10/18 Amlodipine Besylate (AMLODIPINE BESYLATE) 10 Mg Tablet, 1 TAB PO QDAY, #90 TAB 0 Refills Prov:JORI MARCUS APRN [employer] 04/23/18 Losartan Potassium (LOSARTAN POTASSIUM) 100 Mg Tablet, 1 TAB PO DAILY, #90 TAB 0 Refills For blood pressure Prov:JORI MARCUS APRNP-C 04/23/18 Diphenoxylate Hcl/Atropine (LOMOTIL TABLET) 1 Each Tablet, 1 EACH PO BID PRN for DIARRHEA, #30 TAB 2 Refills Prov:JORI MARCUS APRNP-C 04/23/18 Sertraline Hcl (SERTRALINE HCL) 100 Mg Tablet, 1 TAB PO QAM, #90 TAB 0 Refills For depression Prov:JORI MARCUS APRN [employer] 04/23/18 Reported Medications Cholecalciferol (Vitamin D3) (VITAMIN D3) 1,000 Unit Tablet, 1000 UNIT PO QDAY, TAB 05/10/18 Hubbard-3 Fatty Acids/Fish Oil (FISH OIL 1,000 MG CAPSULE) 1 Each Capsule, 1 EACH PO QDAY, CAPSULE 05/10/18 Past Medical/Surgical History Patient has a past medical history of CVA, carotid blockage, hypertension, chronic diarrhea, type 2 diabetes, depression. Patient has a surgical history of cholecystectomy, hysterectomy, left knee replacement, right hip replacement, bilateral shoulder replacement, tonsillectomy. Reviewed Nurses Notes: Yes Hx Smoking: No Smoking Status: Never Smoker Exposure to Second Hand Smoke?: No Hx Substance Use Disorder: No Hx Alcohol Use: No Constitutional Vital Sign - Last 24 Hours 05/10/18 05/10/18 05/10/18 05/10/18 17:46 17:48 18:00 18:08 Temp 97.9 Pulse 52 51 Resp 12 B/P (MAP) 160/65 (96) 160/65 148/68 (94) Pulse Ox 94 95 O2 Delivery Room Air Room Air 05/10/18 05/10/18 05/10/18 05/10/18 18:30 18:38 19:00 19:08 Pulse 55 56 B/P (MAP) 141/93 (109) 136/84 (101) Pulse Ox 95 O2 Delivery Room Air 05/10/18 05/10/18 19:13 19:40 Pulse 54 B/P (MAP) 185/59 (101) Pulse Ox 93 O2 Delivery Room Air Physical Exam General Appearance: The patient is alert, has no immediate need for airway protection and no current signs of toxicity. Respiratory: Chest is non tender, lungs are clear to auscultation. Cardiac: regular rate and rhythm Gastrointestinal: Abdomen is soft and non tender, no masses, bowel sounds normal. Musculoskeletal: Neck: Neck is supple and non tender. Extremities have full range of motion and are non tender. Patient does have tenderness to the lateral aspect of the femur. Does feels that there is a deformity, however there is no visual deformity noted. Skin: No rashes or lesions. DIFFERENTIAL DIAGNOSIS: After history and physical exam differential diagnosis was considered for fracture, contusion, strain, pain. Medical Decision Making EKG/Imaging Imaging EXAMINATION: Right shoulder radiographs 3 views HISTORY: Right shoulder pain. COMPARISON: Chest radiograph from 01/19/2018. FINDINGS: 3 views of the right shoulder are obtained. Bones: The bones are osteopenic. No evidence of acute fracture. Joint spaces: Negative. Hardware: Right shoulder reverse arthroplasty. Hardware appears intact. Alignment: Normal. Soft tissues/visualized lungs: Negative. IMPRESSION: No evidence of acute fracture of the right shoulder. The right shoulder arthroplasty appears intact. Report Dictated By: Ramy Damon MD at 05/10/2018 7:25 PM Report E-Signed By: Ramy Damon MD at 05/10/2018 7:27 PM EXAMINATION: Right femur radiographs 2 views HISTORY: Leg pain. COMPARISON: 05/21/2016. FINDINGS: AP and lateral views of the right femur are obtained. Bones: The bones are osteopenic. No evidence of acute fracture. Joint spaces: Right hip arthroplasty. 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 Hardware: Right hip arthroplasty appears intact. Alignment: Normal. Soft tissues: Vascular calcifications. IMPRESSION: No evidence of acute fracture of the right femur. Right hip arthroplasty appears intact. Osteopenia. Report Dictated By: Ramy Damon MD at 05/10/2018 7:22 PM Report E-Signed By: Ramy Damon MD at 05/10/2018 7:25 PM EXAMINATION: HIP RIGHT HISTORY: Right hip pain, pop. COMPARISON: None. FINDINGS: AP view of the pelvis and frog-leg lateral view of the right hip are obtained. Bones: No evidence of acute fracture. Joint spaces: Right hip arthroplasty. Facet degenerative changes in the lower lumbar spine. Hardware: Right hip arthroplasty appears intact. Alignment: Normal. Soft tissues: Vascular calcifications. IMPRESSION: Right hip arthroplasty appears intact. No evidence of acute fracture. Report Dictated By: Ramy Damon MD at 05/10/2018 7:11 PM Report E-Signed By: Ramy Damon MD at 05/10/2018 7:14 PM ED Course/Re-evaluation ED Course Patient was admitted to exam room, history and physical were obtained. Dif ferential diagnoses were considered. On examination patient did have tenderness to the lateral right femur. Does feels that there is a deformity. There is no visual deformity noted. An x-ray was done of the right hip which was negative. I was concerned about possibly missing a fracture and then ordered a femur x-ray. When radiology went back and patient requested that they do a right shoulder x- ray she does have chronic pain. The femur x-ray and shoulder x-ray were also negative. I discussed the findings with patient and her daughter. We did get the patient up to walk. She was able to walk without any difficulties. We will go ahead and discharge patient home at this time. Patient will be given a limited supply of pain medication. She is to follow-up with her primary care provider. Patient and her daughter verbalized understanding and agreement with plan. Decision to Disposition Date: May 10, 2018 Decision to Disposition Time: 19:44 Depart Departure Latest Vital Signs Vital Signs Date Time Temp Pulse Resp B/P (MAP) Pulse Ox O2 Delivery O2 Flow Rate FiO2 05/10/18 19:40 185/59 (101) 05/10/18 19:13 54 93 Room Air 05/10/18 17:48 97.9 12 Impression: Primary Impression: Acute right hip pain Condition: Improved Disposition: HOME OR SELF-CARE Referrals: JORI MARCUS APRNP-C (PCP) New Scripts Hydrocodone Bit/Acetaminophen (HYDROCODON-ACETAMINOPHEN 5-325) 1 Each Tablet 1 EACH PO Q4-6H PRN for PAIN, #8 TAB Prov: NIC JUAN 05/10/18 Patient Instructions: Hip Pain (ED) Additional Instructions: Limit activity by pain. Ice the hip for 10-15 minutes 2-3 times a day. Get plenty of rest. Follow up with your primary care provider in the next week. Return to the ER if condition worsens. Continue with normal medications. NIC JUAN May 10, 2018 17:49
[2018-05-10] MEDS ORDERED: CHOL10005 PO (17:59)
[2018-05-10] MEDS ORDERED: OMEG-11 PO (17:59)
--- NOTE | 2018-05-10 19:17 | RADIOLOGY IMAGING REPORT ---
FACILITY: [facility] PATIENT NAME: Betty Wang : 1935 MR: [id number] V: [id number] EXAM DATE: ORDERING PHYSICIAN: NIC JUAN TECHNOLOGIST: Location: [facility] Patient: Betty Wang : 1935 Visit/Account:[id number] Date of Sevice: 05/10/2018 EXAMINATION: HIP RIGHT HISTORY: Right hip pain, pop. COMPARISON: None. FINDINGS: AP view of the pelvis and frog-leg lateral view of the right hip are obtained. Bones: No evidence of acute fracture. Joint spaces: Right hip arthroplasty. Facet degenerative changes in the lower lumbar spine. Hardware: Right hip arthroplasty appears intact. Alignment: Normal. Soft tissues: Vascular calcifications. IMPRESSION: Right hip arthroplasty appears intact. No evidence of acute fracture. Report Dictated By: Ramy Damon MD at 05/10/2018 7:11 PM Report E-Signed By: Ramy Damon MD at 05/10/2018 7:14 PM WSN:[id number]
--- NOTE | 2018-05-10 19:28 | RADIOLOGY IMAGING REPORT ---
FACILITY: [facility] PATIENT NAME: Betty Wang : 1935 MR: [id number] V: [id number] EXAM DATE: ORDERING PHYSICIAN: NIC JUAN TECHNOLOGIST: Location: [facility] Patient: Betty Wang : 1935 Visit/Account:[id number] Date of Sevice: 05/10/2018 EXAMINATION: Right femur radiographs 2 views HISTORY: Leg pain. COMPARISON: 05/21/2016. FINDINGS: AP and lateral views of the right femur are obtained. Bones: The bones are osteopenic. No evidence of acute fracture. Joint spaces: Right hip arthroplasty. 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 Hardware: Right hip arthroplasty appears intact. Alignment: Normal. Soft tissues: Vascular calcifications. IMPRESSION: No evidence of acute fracture of the right femur. Right hip arthroplasty appears intact. Osteopenia. Report Dictated By: Ramy Damon MD at 05/10/2018 7:22 PM Report E-Signed By: Ramy Damon MD at 05/10/2018 7:25 PM WSN:[id number]
--- NOTE | 2018-05-10 19:31 | RADIOLOGY IMAGING REPORT ---
FACILITY: [facility] PATIENT NAME: Betty Wang : 1935 MR: [id number] V: [id number] EXAM DATE: ORDERING PHYSICIAN: NIC JUAN TECHNOLOGIST: Location: [facility] Patient: Betty Wang : 1935 Visit/Account:[id number] Date of Sevice: 05/10/2018 EXAMINATION: Right shoulder radiographs 3 views HISTORY: Right shoulder pain. COMPARISON: Chest radiograph from 01/19/2018. FINDINGS: 3 views of the right shoulder are obtained. Bones: The bones are osteopenic. No evidence of acute fracture. Joint spaces: Negative. Hardware: Right shoulder reverse arthroplasty. Hardware appears intact. Alignment: Normal. Soft tissues/visualized lungs: Negative. IMPRESSION: No evidence of acute fracture of the right shoulder. The right shoulder arthroplasty appears intact. Report Dictated By: Ramy Damon MD at 05/10/2018 7:25 PM Report E-Signed By: Ramy Damon MD at 05/10/2018 7:27 PM WSN:[id number]
[2018-05-10 19:40] VITALS: BP 185/59
[2018-05-10] MEDS ORDERED: HYDR-385 PO (19:54)
[2018-05-10] MEDS ORDERED: ACET/HYDROC 5/325MG TH ER ONLY 2 TAB/BOTTLE PO ONE (19:55)
== END 2018-05-10 20:09 | disposition home or self-care (01) ==
LOC: ER 18:10
DX: M25.551 Pain in right hip (principal); Z96.641 Presence of right artificial hip joint
CPT/HCPCS: 99283